=== PATIENT | female | born 1950 | race Asian ===

== ENCOUNTER 2017-02-04 05:13 | Day surgery (SDC) | payer OTHER ==
[2017-01-25 09:52] VITALS: BMI 31.1
[2017-02-04] MEDS ORDERED: ROCURONIUM BROMIDE 50 MG/5 ML VIAL ONE (09:42)
[2017-02-04] MEDS ORDERED: MIDAZOLAM HCL 2 MG/2 ML SINGLE DOSE VIAL ONE (09:42)
[2017-02-04] MEDS ORDERED: PROPOFOL 20 ML ONE (09:42)
[2017-02-04] MEDS ORDERED: LIDOCAINE HCL 2% 100 MG/5 ML DISP.SYRIN ONE (09:43)
[2017-02-04] MEDS ORDERED: LIDOCAINE HCL 2% (20ML MULTI-DOSE VIAL) NR ONE (09:43)
[2017-02-04] MEDS ORDERED: ceFAZolin SODIUM 1 GM VIAL IVPB ONE (10:24)
[2017-02-04] MEDS ORDERED: DEXAMETHASONE SOD PHOSPHATE 4 MG/1 ML VIAL ONE (10:26)
[2017-02-04] MEDS ORDERED: ceFAZolin SODIUM 1 GM VIAL ONE (10:26)
[2017-02-04] MEDS ORDERED: KETOROLAC TROMETHAMINE 30 MG/1 ML VIAL ONE (11:14)
[2017-02-04] MEDS ORDERED: NEOSTIGMINE METHYLSULFATE 0.5 MG/ML - 10 ML MDV ONE (11:17)
[2017-02-04] MEDS ORDERED: GLYCOPYRROLATE 0.2 MG/1 ML VIAL ONE (11:17)
[2017-02-04] MEDS ORDERED: PROMETHAZINE HCL 25 MG/1 ML VIAL IVPUSH PRN (11:51)
[2017-02-04] MEDS ORDERED: ONDANSETRON 4 MG/2 ML VIAL IVPUSH PRN (11:51)
[2017-02-04] MEDS ORDERED: LACTATED RINGERS SOLUTION 1,000 ML IV SCH (12:00)
--- NOTE | 2017-02-04 12:15 | OP ---
Operative Note - Note: Operative Date: 02/04/17 Pre-Operative Diagnosis: left ovarian cyst, right tubular echo filled strucature suggestive of pyosalpinx Operation: laparoscopy with bilateral salpingectomy, left ovarian cystectomy, suction hysteroscopy Implants: endometrial cancer Surgeon: Blanca Sneed Mover: Saba Tran Anesthesiologist/MANUGRAPHER: Virgil Garay Anesthesia: General Specimens Removed: bilateral salpingx, left cyst, endometrial tissue Estimated Blood Loss (mls): 20 Drains, Volume Out (mls): 400 (loo) Fluid Volume Replaced (mls): 700 Operative Report Dictated: Yes
--- NOTE | 2017-02-04 13:27 | SURG ---
Surgery Rebar Bender Note Rebar Bender: Saba Tran PA-C Date of Service: 02/04/17 Diagnosis: left ovarian cyst, right tubular echo filled strucature suggestive of pyosalpinx Procedure: Operation: laparoscopy with bilateral salpingectomy, left ovarian cystectomy, suction hysteroscopy I was present for the entirety of the operative procedure. For further detail, please refer to operative report. Visit type - Case Type Case Type: Scheduled Admission - Emergency Emergency Visit: No - New patient This patient is new to me today: Yes Date on this admission: 02/04/17 - Critical Care Critical Care patient: No
[2017-02-04 14:53] VITALS: TEMP 97
--- NOTE | 2017-02-04 15:31 | HP ---
History & Physical Update - History History: No Change - Physical Physical: No Change - Assessment Assessment: No Change - Plan Plan: No Change
[2017-02-04] MEDS ORDERED: MAG HYDROX/AL HYDROX/SIMETH 30 ML UNIT-DOSE CUP PO ONE (15:44)
[2017-02-04 18:35] VITALS: BP 131/75; PULSE 86
--- NOTE | 2017-02-05 11:08 | EKG ---
Test Reason : Blood Pressure : / mmHG Vent. Rate : 082 BPM Atrial Rate : 082 BPM P-R Int : 180 ms QRS Dur : 084 ms QT Int : 388 ms P-R-T Axes : 043 -04 058 degrees QTc Int : 453 ms NORMAL SINUS RHYTHM NORMAL ECG WHEN COMPARED WITH ECG OF 25-JAN-2017 10:20, NO SIGNIFICANT CHANGE WAS FOUND Confirmed by TATYANA ARAGON MD ([id number]) on 02/05/2017 11:08:28 AM Referred By: Confirmed By:TATYANA ARAGON MD
--- NOTE | 2017-02-07 09:25 | PATH ---
Surgical Pathology Report Patient Name: FADI MOONEY [facility]. Rec. #: [id number] /Age/Gender: 1950 (Age: 66) / F Account: [id number] Location: AMBULATORY SURG Taken: 02/04/2017 Received: 02/04/2017 Reported: 02/07/2017 Physicians: Nash Alonzo Specimen(s) Received A: LEFT FALLOPIAN TUBE B: RIGHT FALLOPIAN TUBE C: CYST WALL, LEFT D: ENDOMETRIAL TISSUE Clinical History Left ovarian cyst, fibroid Endometrial cancer, pyosalpinx, left ovarian cyst Final Diagnosis A. FALLOPIAN TUBE, LEFT, SALPINGECTOMY: BENIGN FALLOPIAN TUBE WITH SMALL PARATUBAL CYSTS. NOT INVOLVED BY CARCINOMA. B. "PYOSALPINX" (FALLOPIAN TUBE), RIGHT, SALPINGECTOMY: HIGH GRADE POORLY DIFFERENTIATED CARCINOMA, CONSISTENT WITH SEROUS CARCINOMA, WITH EXTENSIVE NECROSIS (SEE COMMENT). TUMOR SIZE: ~9.0 CM SMALL PARATUBAL CYST WITH FOCAL INVOLVEMENT BY CARCINOMA; NO DEFINITIVE SEROSAL INVOLVEMENT IDENTIFIED. FOCAL AREA SUGGESTIVE OF IN-SITU COMPONENT IDENTIFIED. LYMPHOVASCULAR INVASION: IDENTIFIED. PATHOLOGIC STAGING: SEE COMMENT. C. OVARY, LEFT, CYST, CYSTECTOMY: BENIGN CYST, MOST CONSISTENT WITH SEROUS CYST. NO CARCINOMA IDENTIFIED. D. "ENDOMETRIAL CANCER TISSUE" CURETTAGE: FRAGMENTS OF HIGH GRADE POORLY DIFFERENTIATED CARCINOMA, CONSISTENT WITH SEROUS CARCINOMA, MORPHOLOGICALLY SIMILAR TO PART B (SEE COMMENT). Comment: The sections show a markedly distended right fallopian tube with near complete involvement by high grade carcinoma. The tumor partially involved a small surface paratubal cyst; however, no definitive penetration of the serosa is seen. Focal area suggestive of an in situ component within the fallopian tube is seen. Tissue from endometrial curettage shows morphologically identical high-grade carcinoma. Immunohistochemical stains performed and interpreted at [place], [place] ([id number]) on block D5 and interpreted at [facility] show the following: The tumor cells are strongly positive for CK7, p16, p53, and WT1 immunostains, positive for PAX8, ER and TX immunostains; the tumor cells are negative for CK20 and CD10 immunostains. The morphologic findings and the immunoprofile are most consistent with serous carcinoma. The unilateral near complete involvement of the right fallopian tube with a focus suggestive of an in situ component favors Fallopian tube origin of this neoplasm. The reviewed material, demonstrating unilateral tubal and endometrial involvement by carcinoma, suggests at least pT2a (FIGO IIA) pathologic staging; however, complete pathologic staging is deferred till the staging procedure is performed (per Dr. Red). The case was initially discussed with Dr. Sneed on 02/05/[address] Red on 02/06/17. Comments Fallopian Tube Carcinoma: Surgical Pathology Cancer Case Summary (Checklist) Based on AJCC/UICC TNM, 7th edition Tumor Site _x_ Right fallopian tube Relationship to ovary: _x_ Not fused Status of fimbriated end: _x_ Closed Tumor Location _x_ Ampulla _x_ Infundibular portion _x_ Isthmus Specimen Integrity _x_ Intact Tumor Size Greatest dimension: 9.0 cm Histologic Type: serous carcinoma Histologic Grade _x_ G3: Poorly differentiated Lymph-Vascular Invasion _x_ Identified Lymph Node Sampling _x_ Not performed Pathologic Staging (pTNM [FIGO]): See comment above. Electronically Signed Kishore Castillo M.D. Gross Description A. Received in formalin labeled "left fallopian tube" is a 3.5 cm in length fimbriated fallopian tube. The outer surface is suarez-pink and smooth. Sectioning reveals an unremarkable pinpoint lumen. The specimen is submitted entirely in 2 cassettes as follows: 1-fimbria; 2-cross sections of fallopian tube. B. Received in formalin labeled "right pyosalpinx" is a 9 cm in length fimbriated, dilated, coiled portion of fallopian tube. The outer surface is suarez-pink with focal nodularity. Sectioning reveals a dilated lumen containing solid suarez, focally hemorrhagic material. No serosal disruption is grossly identified. Packer Insulation sections are submitted in 12 cassettes as follows: 1-fimbria; 2-5-cross sections of fallopian tube, 5-12 additional cross sections of fallopian tube. C. Received in formalin, labeled "cyst wall left" is a 2.5 x 0.9 x 0.2 cm suarez, irregular portion of soft tissue, possibly consistent with a portion of cyst wall. The specimen is submitted in toto in one cassette. D. Received in formalin labeled "endometrial cancer tissue" is a 6.0 x 4.5 x 0.3 cm aggregate of suarez-pink soft tissue fragments. The formalin is filtered and the specimen is entirely submitted in 6 cassettes. 02/04/201702/04/2017
--- NOTE | 2017-02-16 12:25 | OP ---
DATE OF OPERATION: 02/04/2017 PREOPERATIVE DIAGNOSIS: Left ovarian cyst and right hydrosalpinx with possibly pyelosalpinx or tubal cancer. POSTOPERATIVE DIAGNOSIS: Rule out tubal cancer and also endometrial cancer. OPERATION: Laparoscopic bilateral salpingectomy, left ovarian cystectomy, suction dilatation and curettage, and hysteroscopy. SURGEON: Landon Rodriguez MD QUALITY CONTROL HEAD: LOS Pina ANESTHESIA: General. ANESTHESIOLOGIST: Virgil Garay MD EBL: 20CC FINDINGS: A large hydrosalpinx (possibly pyelosalpinx) noted on the right tube , a cyst on the left ovary, and endometrial carcinoma noted by hysteroscopy. DESCRIPTION OF PROCEDURE: The patient was taken to the operating room, placed in the dorsal lithotomy position, prepped and draped in the usual sterile fashion. A time-out was performed in accordance with hospital regulation. A Kiser catheter had been inserted into the bladder. A 5-mm umbilical incision was made. An 11-mm incision was made on the left and a 5 mm incision was made on the right. Veress needle was inserted and CO2 was insufflated into the abdomen. Approximately 3 to 4 liters of CO2 was insufflated. The Veress needle was then removed, and a 5-mm trocar was then inserted under direct visualization without injury to the underlying viscera. The laparoscope with camera attached - visualization revealed a normal uterus with what appeared to be either right hydrosalpinx with either a pyelosalpinx or possibly tubal cancer seen on the right tube. On the left noted to have an ovarian cyst, approximately 3 cm. LigaSure was then inserted and coagulation and cutting of the left tube and right tube were done. An Endo bag was inserted and tubes were removed. Attention was then drawn to the left ovary, where a cystectomy was performed. The cyst wall was then peeled away from the ovary and also submitted. Hemostasis was achieved using coagulation. Tubes were removed, as well as the left ovarian cyst. Hemostasis was achieved. CO2 was removed from the abdomen. The incisions was then closed using 4-0 Biosyn suture. Attention was then drawn to the vagina, speculum was placed then hysteroscope was inserted. A large amount of endometrial cancer was seen. Suction dilatation and curettage was then performed. Cautery was then used to remove some of the tissue. After suction D &C had been performed, all instruments were then removed. The patient tolerated the procedure well. She was taken to the recovery room in stable condition. LANDON RODRIGUEZ M.D. [id number] MTDD
== END 2017-02-04 18:44 | disposition home or self-care (01) ==
LOC: JASUSAT 05:13 → MERGE 17:34 → JASUSAT 18:44
PROVIDERS: ATTEND Obstetrics & Gynecology
PROC: 0UB74ZZ Excision of Bilateral Fallopian Tubes, Percutaneous Endoscopic Approach (ICD-10-PCS; principal; 2017-02-04 09:30)
PROC: 0UB14ZZ Excision of Left Ovary, Percutaneous Endoscopic Approach (ICD-10-PCS; 2017-02-04 09:30)
PROC: 0UDB8ZX Extraction of Endometrium, Via Natural or Artificial Opening Endoscopic, Diagnostic (ICD-10-PCS; 2017-02-04 09:30)
DX: C57.01 Malignant neoplasm of right fallopian tube (principal); N70.91 Salpingitis, unspecified; N83.8 Other noninflammatory disorders of ovary, fallopian tube and broad ligament
CPT/HCPCS: 84703; 86850; 86900; 86901; 88305-TC; 93005; 93010; 94760

== ENCOUNTER 2017-02-26 05:12 | Day surgery (SDC) | payer OTHER ==
[2017-02-21 10:26] VITALS: BMI 31.1
[2017-02-26] MEDS ORDERED: PROPOFOL 20 ML ONE ×2 (07:58)
[2017-02-26] MEDS ORDERED: MIDAZOLAM HCL 2 MG/2 ML SINGLE DOSE VIAL ONE (07:58)
[2017-02-26] MEDS ORDERED: ROCURONIUM BROMIDE 50 MG/5 ML VIAL ONE ×2 (07:58→09:20)
[2017-02-26] MEDS ORDERED: SUCCINYLCHOLINE CHLORIDE 200 MG/10 ML VIAL ONE (07:58)
--- NOTE | 2017-02-26 08:14 | HP ---
History & Physical Update - History History: No Change - Physical Physical: No Change - Assessment Assessment: No Change - Plan Plan: No Change
[2017-02-26] MEDS ORDERED: IBUPROFEN 800 MG/8 ML IJ IVPB PRN (08:16)
[2017-02-26] MEDS ORDERED: DEXAMETHASONE SOD PHOSPHATE 4 MG/1 ML VIAL ONE (08:17)
[2017-02-26] MEDS ORDERED: ceFAZolin SODIUM 1 GM VIAL ONE (08:18)
[2017-02-26] MEDS ORDERED: ceFAZolin SODIUM 1 GM VIAL IVPB ONE (08:20)
[2017-02-26] MEDS ORDERED: DESFLURANE GAS 240 ML BOTTLE IH ONE (08:25)
[2017-02-26] MEDS ORDERED: BUPIVACAINE HCL/PF 0.5% (5MG/ML) 10 ML VIAL ONE (08:26)
[2017-02-26] MEDS ORDERED: LACTATED RINGERS SOLUTION 1,000 ML IV SCH ×2 (08:30→10:45)
[2017-02-26] MEDS ORDERED: HYDROmorphone HCL/PF 1 MG/ML VIAL (FOR PYXIS CHARGING ONLY) ONE (08:34)
[2017-02-26] MEDS ORDERED: BUPIVACAINE HCL/PF 0.5% (5MG/ML) 10 ML VIAL IJ ONE ×2 (09:06→10:30)
[2017-02-26] MEDS ORDERED: NEOSTIGMINE METHYLSULFATE 0.5 MG/ML - 10 ML MDV ONE (10:14)
[2017-02-26] MEDS ORDERED: KETOROLAC TROMETHAMINE 30 MG/1 ML VIAL ONE (10:14)
[2017-02-26] MEDS ORDERED: GLYCOPYRROLATE 0.2 MG/1 ML VIAL ONE (10:14)
--- NOTE | 2017-02-26 10:40 | OP ---
Operative Note - Note: Operative Date: 02/26/17 Pre-Operative Diagnosis: right fallopian tube cancer, endometrial cancer Operation: robotic assisted laparoscopic hysterectomy, bilateral oophorectomy, omentectomy, right pelvic node biopsy, tumor debulking optimal Findings: uterus 6cm with normal ovaries, a tumor nodule on the sigmoid epiploica. there were no residual tumors. Post-Operative Diagnosis: Same as Pre-op Surgeon: Ryan Red (intraop ) Access Analyst: Blanca Sneed Anesthesia: General Estimated Blood Loss (mls): 50 Operative Report Dictated: Yes
--- NOTE | 2017-02-26 10:50 | DS ---
Physical Examination Vital Signs: Vital Signs Temperature 97.9 F 02/26/17 06:35 Pulse Rate 84 02/26/17 06:35 Respiratory Rate 20 02/26/17 06:35 Blood Pressure 149/70 02/26/17 06:35 O2 Sat by Pulse Oximetry (%) 99 02/26/17 06:34 Constitutional: Yes: Well Nourished Eyes: Yes: WNL HENT: Yes: WNL Neck: Yes: WNL Cardiovascular: Yes: WNL Respiratory: Yes: WNL Gastrointestinal: Yes: WNL Edema: No Peripheral Pulses WNL: Yes Wound/Incision: Yes: Clean/Dry Neurological: Yes: WNL Discharge Summary Reason For Visit: ENDOMETRIAL CANCER surgery Procedures: Principal: robotic assisted laparoscopic hysterectomy, bilateral oophorectomy, omentectomy, right pelvic node biopsy, optimal debulking Condition: Good - Instructions Diet, Activity, Other Instructions: regular diet as tolerated Disposition: HOME - Home Medications Comprehensive Discharge Medication List: Ambulatory Orders Aspirin Coated [Ecotrin -] 81 mg PO DAILY 01/25/17 Rosuvastatin Calcium [Crestor] 10 mg PO HS 01/25/17
[2017-02-26] MEDS: HYDROmorphone HCL CARPU-JECT 1 MG/1 ML DISP.SYRIN IVPUSH PRN ×4 (11:10→11:35)
[2017-02-26] MEDS ORDERED: HYDROmorphone HCL CARPU-JECT 2 MG/1 ML DISP.SYRIN ONE (11:18)
[2017-02-26 11:58] LABS: MCH 29.9 pg (25.7-33.7); MCHC 33.6 g/dl (32.0-36.0); MEAN CELL VOLUME 88.8 fl (80-96); PLATELET COUNT 242 K/MM3 (134-434); WHITE BLOOD COUNT 9.5 K/mm3 (4.0-10.0)
--- NOTE | 2017-02-26 12:11 | OP ---
DATE OF OPERATION: 02/26/2017 This is an intraoperative consultation called by Dr. Blanca Sneed for intraabdominal tumor nodule. PREOPERATIVE DIAGNOSIS: Serous carcinoma of right fallopian tube, serous carcinoma of uterus. POSTOPERATIVE DIAGNOSIS: Serous carcinoma of right fallopian tube, serous carcinoma of uterus. PROCEDURE: Intraoperative consultation, robotic-assisted laparoscopic hysterectomy, bilateral oophorecetomy, right pelvic node biopsy, omentectomy, optimal tumor debulkings. SURGEON: Ryan Red MD PLASTIC BLOCK BOILER RELINER: Blanca Sneed MD ANESTHESIA: General. ESTIMATED BLOOD LOSS: Minimal. OPERATIVE FINDINGS: The patient has a 6-cm uterus with normal-appearing ovaries. There was a tumor nodule on the sigmoid colon at the location of appendix epiploica. There were no other abnormal intraabdominal findings. OPERATIVE PROCEDURE: Under general endotracheal tube anesthesia, skin was prepped and draped in the usual manner for abdominal vaginal procedure. A Kiser catheter was placed, a bivalve speculum placed in the vagina, single-tooth tenaculum applied to the anterior lip of the cervix. The uterus was sounded to 6 cm followed by placement of manipulators. This was then followed by moving to perform abdominal portion of the surgery. An incision was made at the umbilicus, which was followed by placement of Veress needle, and after confirming successful placement, insufflation of CO2 was carried out. An 8-mm 30-degree robotic camera was used to visualize the entire abdominal and pelvic cavity. Additional trocar was placed at the left lower quadrant of the abdomen, left mid abdomen, right mid abdomen, right lateral abdomen with direct visualization. An additional 5-mm trocar was placed at the left upper quadrant of the abdomen. With the patient in Trendelenburg position, the entire abdomen and pelvis as visualized. Pelvic washings were done. Fluid was sent for cytologic evaluations. We then followed by opening posteriorly of the blocked ligament identifying the ureter. IP ligament was cauterized and cut on both sides followed by cauterizing and cutting the mesosalpinx on both sides, followed by cauterizing and cutting the round ligament on both sides. Pubovesical cervical fascia was incised. The bladder was dissected away. Uterine vessels were skeletonized and cauterized and cut on both sides. We then followed by further cauterizing and cutting the cardinal ligaments. Eventually, the vagina was entered, uterus was removed. Subsequently, the nodule from the epiploica was resected using careful dissections. The omentum was removed from below the colon using vessel sealer. At the end, an enlarged right pelvic node was biopsied. The lymph node was grasped, adequately secured lymph node was removed. At the end, we irrigated copiously, made sure there was no injury to bowel, bladder, ureters. The vaginal cuff was closed with 0 V-Loc suture in a running fashion. There was no bleeding. Patient tolerated the procedure well, and we made sure there was no injury to bowel, bladder, ureters. The skin was closed with 4-0 Monocryl. Nash [id number] cc: Blanca Sneed MD
[2017-02-26 12:19] LABS: ANION GAP 7 (8-16); CALCIUM 8.7 mg/dL (8.5-10.1); CO2 29 mmol/L (21-32); COCKROFT - GAULT 100.9715; CREATININE 0.7 mg/dL (0.55-1.02); GLUCOSE,RANDOM 155 mg/dL (74-106)
[2017-02-26 12:20] LABS: TROPONIN I < 0.02 ng/ml (0.00-0.05)
[2017-02-26] MEDS ORDERED: LORAZEPAM CARPU-JECT 2 MG/ML DISP.SYRIN IM ONE (13:45)
--- NOTE | 2017-02-26 14:02 | EKG ---
Test Reason : Blood Pressure : / mmHG Vent. Rate : 059 BPM Atrial Rate : 059 BPM P-R Int : 168 ms QRS Dur : 084 ms QT Int : 430 ms P-R-T Axes : 044 -06 064 degrees QTc Int : 425 ms SINUS BRADYCARDIA POSSIBLE ANTERIOR INFARCT , AGE UNDETERMINED ABNORMAL ECG WHEN COMPARED WITH ECG OF 04-FEB-2017 15:54, NO SIGNIFICANT CHANGE WAS FOUND Confirmed by CRYSTAL ROLLE MD ([id number]) on 02/26/2017 2:02:25 PM Referred By: Miguel HARVEY Confirmed By:CRYSTAL ROLLE MD
[2017-02-26] MEDS: CEFAZOLIN 2 GM/D5W 50 ML IVPB SCH ×2 (15:47→23:12)
[2017-02-26 18:02] LABS: MCH 29.2 pg (25.7-33.7); MCHC 33.1 g/dl (32.0-36.0); MEAN CELL VOLUME 88.2 fl (80-96); MEAN PLT VOLUME 6.9 fl (7.5-11.1); PLATELET COUNT 252 K/MM3 (134-434); RDW 13.8 % (11.6-15.6); WHITE BLOOD COUNT 8.5 K/mm3 (4.0-10.0)
[2017-02-26 18:34] LABS: COCKROFT - GAULT 100.9715; CREATININE 0.7 mg/dL (0.55-1.02)
[2017-02-26 18:39] LABS: TROPONIN I < 0.02 ng/ml (0.00-0.05)
[2017-02-26] MEDS ORDERED: SIMETHICONE 80 MG TAB.CHEW (FP) PO PRN (20:50)
--- NOTE | 2017-02-26 23:25 | PN ---
Progress Note (short form) - Note Progress Note: Pt was seen at bedside due to upper abd pain possible gas pain VSS CBC, BMP 02/26/17 17:56 02/26/17 17:56 Abd soft mild tendernss at incisions incision intact no drainage Ext no edema ass possible pain due to CO2 possible gastritis aurelia give mylicon will reevaluate & DC in am if stable
[2017-02-27 08:56] LABS: MEAN CELL VOLUME 88.1 fl (80-96); MEAN PLT VOLUME 7.1 fl (7.5-11.1); PLATELET COUNT 238 K/MM3 (134-434); WHITE BLOOD COUNT 8.8 K/mm3 (4.0-10.0)
[2017-02-27] MEDS ORDERED: ACETAMINOPHEN 325 MG TABLET (FP) PO PRN (09:54)
[2017-02-27] MEDS ORDERED: ENOXAPARIN NA (PORCINE) 40 MG/0.4 ML DISP.SYRIN SQ SCH (10:00)
--- NOTE | 2017-02-27 10:48 | PN ---
Progress Note (SOAP) - Subjective History of Present Illness: Pt doing well Pt has gas pain given Mylicon - Current Medications Current Medications: Active Medications Acetaminophen (Tylenol -) 650 mg PO Q4H PRN PRN Reason: PAIN Last Admin: 02/27/17 10:16 Dose: 650 mg Enoxaparin Sodium (Lovenox -) 40 mg SQ DAILY ASTRID Last Admin: 02/27/17 10:16 Dose: Not Given Hydromorphone HCl (Dilaudid -) 4 mg PO Q4H PRN PRN Reason: PAIN Hydromorphone HCl (Dilaudid Injection -) 0.5 mg IVPUSH [id number] PRN PRN Reason: PAIN Stop: 03/01/17 10:43 Last Admin: 02/26/17 11:35 Dose: 0.5 mg Lactated Ringer's (Lactated Ringers Solution) 1,000 mls @ 75 mls/hr IV ASDIR ASTRID Ibuprofen (Caldolor Injection -) 800 mg IVPB Q6H PRN PRN Reason: FEVER Last Admin: 02/26/17 17:49 Dose: 800 mg Simethicone (Mylicon -) 80 mg PO Q4H PRN Last Admin: 02/26/17 21:18 Dose: 80 mg - Objective Vital Signs: Vital Signs Temperature 97.8 F 02/27/17 08:15 Pulse Rate 67 02/27/17 08:15 Respiratory Rate 18 02/27/17 08:15 Blood Pressure 126/61 02/27/17 08:15 O2 Sat by Pulse Oximetry (%) 98 02/26/17 13:30 Labs Lab Results: CBC, BMP 02/27/17 08:00 02/26/17 17:56 Assessment/Plan POD 1 robotic Total hysterectomy stable Plan dc homewhen passing flatus
--- NOTE | 2017-02-27 13:54 | PN ---
Progress Note, Physician Chief Complaint: s/p robotic BSO tumor debulking History of Present Illness: under general anesthesia post op day one - Current Medication List Current Medications: Active Medications Acetaminophen (Tylenol -) 650 mg PO Q4H PRN PRN Reason: PAIN Last Admin: 02/27/17 10:16 Dose: 650 mg Enoxaparin Sodium (Lovenox -) 40 mg SQ DAILY ASTRID Last Admin: 02/27/17 10:16 Dose: Not Given Hydromorphone HCl (Dilaudid -) 4 mg PO Q4H PRN PRN Reason: PAIN Hydromorphone HCl (Dilaudid Injection -) 0.5 mg IVPUSH [id number] PRN PRN Reason: PAIN Stop: 03/01/17 10:43 Last Admin: 02/26/17 11:35 Dose: 0.5 mg Lactated Ringer's (Lactated Ringers Solution) 1,000 mls @ 75 mls/hr IV ASDIR ASTRID Ibuprofen (Caldolor Injection -) 800 mg IVPB Q6H PRN PRN Reason: FEVER Last Admin: 02/26/17 17:49 Dose: 800 mg Simethicone (Mylicon -) 80 mg PO Q4H PRN Last Admin: 02/26/17 21:18 Dose: 80 mg - Objective Vital Signs: Vital Signs Temperature 97.8 F 02/27/17 08:15 Pulse Rate 67 02/27/17 08:15 Respiratory Rate 18 02/27/17 08:15 Blood Pressure 126/61 02/27/17 08:15 O2 Sat by Pulse Oximetry (%) 98 02/26/17 13:30 Constitutional: Yes: Well Nourished Cardiovascular: Yes: WNL Respiratory: Yes: WNL Gastrointestinal: Yes: WNL Labs: CBC, BMP 02/27/17 08:00 02/26/17 17:56 Assessment/Plan Patient is ambulating, pain under control, no nausea or vomiting, tolerating PO , no adverse effects of anesthetic. dept of anesthesia will sign off care at this time
[2017-02-27 14:42] VITALS: BP 136/77; PULSE 89; TEMP 98.1
--- NOTE | 2017-03-01 15:34 | PATH ---
Surgical Pathology Report Patient Name: FADI MOONEY [facility]. Rec. #: [id number] /Age/Gender: 1950 (Age: 67) / F Account: [id number] Location: AMBULATORY SURG Taken: 02/26/2017 Received: 02/26/2017 Reported: 03/01/2017 Physicians: Ryan Sneed M.D. Specimen(s) Received A: UTERUS, CERVIX AND BILATERAL OVARIES B: OMENTUM C: RIGHT PELVIC NODE D: PELVIC MASS Clinical History Fallopian tube cancer/endometrial cancer Final Diagnosis A. 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 SURFACE ENDOMETRUIM INVOLVEMEN: PRESENT; MYOMETRIAL INVOLVEMENT (~50%): PRESENT, FOCAL INVOLVEMENT OF ADENOMYOSIS ALSO PRESENT. LYMPHOVASCULAR INVASION: SUSPICIOUS. UNINVOLED ENDOMETRIUM: SMALL ENDOMETRIAL POLYP, BACKGROUND ATROPHIC ENDOMETRIUM. UNINVOLED MYOMETRIUM: ADENOMYOSIS AND LEIOMYOMATA. UTERINE SEROSA: NOT INVOLVED BY CARCINOMA. CERVIX: NOT INVOLVED BY CARCINOMA. PARAMETRIA: NOT INVOLVED BY CARCINOMA. LEFT OVARY: NOT INVOLVED BY CARCINOMA. RIGHT OVARY: NOT INVOLVED BY CARCINOMA. PATHOLOGIC STAGING: SEE COMMENT. B. OMENTUM, OMENTECTOMY: BENIGN FATTY TISSUE; NOT INVOLVED BY CARCINOMA. C. RIGHT PELVIC NODE, LYMPHADENECTOMY: HIGH GRADE ADENOCARCINOMA, MORPHOLOGICALLY SIMILAR TO PART A, INVOLVING NODULAR SOFT TISSUE, COMPATIBLE WITH COMPLETE LYMPH NODE REPLACEMENT BY ADENOCARCINOMA (09/30). SEPARATE FRAGMENT OF FIBROFATTY WITH A SCANT FRAGMENT OF UNINVOLVED LYMPHOID TISSUE. D. PELVIC MASS, BIOPSY: HIGH GRADE ADENOCARCINOMA, MORPHOLOGICALLY SIMILAR TO PART A. Comment: Prior specimen ([id number]) demonstrated right fallopian tube with extensive involvement by high grade adenocarcinoma, consistent with serous carcinoma, including a focal area likely representing an in-situ carcinoma, and uterine curettage specimen with high grade adenocarcinoma morphologically identical to tubal carcinoma. The current specimen shows surface and myometrial uterine involvement by high grade adenocarcinoma, consistent with serous carcinoma with morphology identical to the prior specimen. Involvement of right pelvic node and a "pelvic mass" involved by adenocarcinoma are also seen in this specimen. Immunohistochemical stains performed at the [place], [place] ([id number]) on block A13 and interpreted at [facility] show the tumor cells being positive for p16, p53, WT1, ER and MD immunostains, which is compatible with serous carcinoma. Overall, given the size of the right fallopian tube tumor (9.0 cm), tubal primary is favored, although synchronous tubal and endometrial carcinoma cannot be ruled out. The occurrence of synchronous serous carcinoma of the endometrium and Fallopian tube is well documented in the literature, although the origin of serous carcinoma in these cases remains debatable. When Fallopian tube tumors are >2 cm, and an in-situ component is seen, Fallopian tube origin is favored Assuming the tubal origin of the tumor, pathologic staging is pT2b pN1 [FIGO IIIC] Also refer to [id number] for the pelvic washing cytology results. Reference: Jackelyn Olvera et al. Primary sources of pelvic serous cancer in patients with endometrial epithelial carcinoma. Modern pathology (2015) 28, 118-127. Note: The case was discussed with Dr. Red on 03/01/17. Comments Fallopian Tube Carcinoma: Surgical Pathology Cancer Case Summary (Checklist) Based on AJCC/UICC TNM, 7th edition Tumor Site _x_ Right fallopian tube Relationship to ovary: _x_ Not fused Status of fimbriated end: _x_ Closed _x_ Uterus Tumor Location (in the fallopian tube) _x_ Ampulla _x_ Infundibular portion _x_ Isthmus Specimen Integrity Specify side: _x_ Intact Tumor Size Greatest dimension: 9.0 cm Histologic Type: serous carcinoma Histologic Grade _x_ G3: Poorly differentiated Lymph-Vascular Invasion _x_ Present (also refer to the prior specimen [id number]) Lymph Node Sampling _x_ Pelvic nodes, NOS Number examined: 1 Number positive: 1 Pathologic Staging (pTNM [FIGO]): see comment above. Electronically Signed Kishore Castillo M.D. Gross Description A. Received in formalin labeled "uterus, cervix, bilateral ovaries" is a 63 g hysterectomy specimen including a uterus, attached cervix, and attached bilateral ovaries. No definite fallopian tubes are identified. The specimen measures 8 cm from superior to inferior, 4.4 cm from left to right and 3.0 cm from anterior to posterior. The serosa is pink-suarez with a focal subserosal nodule. The cervix measures 2.7 cm in length and averages 2.5 cm in diameter. The ectocervix is pink-suarez, smooth and glistening. The endometrial cavity measures 3.4 cm in length and 2.3 cm from cornu to cornu. The endometrium displays a 0.4 x 0.3 x 0.1 cm pink-suarez, polypoid lesion on the mid-lower posterior surface. Additionally, there is a 0.7 cm in greatest dimension submucosal nodule near the right cornua of the posterior aspect. The remaining myometrium is suarez red and averages 0.1 cm in thickness. The myometrium displays a 1.5 cm in greatest dimension intramural nodule. The cut surface of the subserosal, submucosal and intramural nodules is suarez, firm to rubbery and displays whorled architecture. No areas of hemorrhage or necrosis are identified. The remaining myometrium is suarez-pink and averages 1.4 cm in thickness. The left ovary measures 1.7 x 1.4 x 0.8 cm. The outer surface is suarez-yellow, convoluted and smooth. Sectioning reveals unremarkable ovarian parenchyma. The right ovary measures 2.5 x 1.7 x 1.0 cm. The outer surface is suarez-yellow and smooth. Sectioning reveals unremarkable ovarian parenchyma. Slot Shift Supervisor sections are submitted in 27 cassettes as follows: 1-anterior cervix; 2-posterior cervix; 3-anterior lower uterine segment; C 4-posterior lower uterine segment; 5-left parametrium; 6-right parametrium; 7-11-entire anterior endomyometrium sequentially submitted from superior to inferior; [id number] posterior endomyometrium sequentially submitted from superior to inferior (submucosal nodule in cassettes 12-13, polyp in cassettes 17-18); 20-subserosal nodule; 21-intramural nodule; 22-24-left ovary; 25-27-right ovary. B. Received in formalin labeled "omentum" is a 25.0 x 12.0 x 1.7 cm aggregate of yellow, lobulated adipose tissue, consistent with omentum. Sectioning reveals unremarkable adipose tissue. No masses are identified. Slot Shift Supervisor sections are submitted in 5 cassettes. C. Received in formalin labeled "right pelvic node" is a 0.7 x 0.5 x 0.4 cm suarez, irregular lymph node. Separately received within the same container is a 2.5 x 2.4 x 0.3 cm aggregate of yellow, lobulated adipose tissue. The lymph node is bisected and the specimen is entirely submitted in 2 cassettes as follows: 1-one whole bisected lymph node; 2-separate fat. D. Received in formalin labeled "pelvic mass" is a 0.2 x 0.2 x 0.1 cm aggregate of suarez soft tissue fragments. No mass is identified. The formalin is filtered and the specimen is entirely submitted in one cassette. 02/26/201702/26/2017
--- NOTE | 2017-03-01 15:34 | PATH ---
Cytology Non-Gynecological Report Patient Name: FADI MOONEY [facility]. Rec. #: [id number] /Age/Gender: 1950 (Age: 67) / F Account: [id number] Location: AMBULATORY SURG Taken: 02/26/2017 Received: 02/26/2017 Reported: 03/01/2017 Physicians: Blanca Sneed M.D. Specimen(s) Received PELVIC WASHINGS Clinical History Fallopian tube/endometrial carcinoma Final Diagnosis PELVIC WASHINGS: SATISFACTORY FOR EVALUATION. SCATTERED CLUSTERS OF ATYPICAL CELLS PRESENT, SUSPICIOUS FOR INVOLVEMENT BY ADENOCARCINOMA (SEE COMMENT). Comment: Refer to [id number] and [id number] for the surgical pathology results. Electronically Signed Kishore Castillo M.D. Gross Description Received is 30 cc of bloody fluid fresh. Three cytofunnel slides are made.
== END 2017-02-27 15:45 | disposition home or self-care (01) ==
LOC: JASUSAT 05:12 → J3W 14:16 → JASUSAT 02-27 15:45
PROVIDERS: ATTEND Obstetrics & Gynecology
PROC: 0UT24ZZ Resection of Bilateral Ovaries, Percutaneous Endoscopic Approach (ICD-10-PCS; 2017-02-26)
PROC: 8E0W4CZ Robotic Assisted Procedure of Trunk Region, Percutaneous Endoscopic Approach (ICD-10-PCS; 2017-02-26)
PROC: 0WBN4ZX Excision of Female Perineum, Percutaneous Endoscopic Approach, Diagnostic (ICD-10-PCS; 2017-02-26)
PROC: 0DBS4ZZ (ICD-10-PCS; 2017-02-26)
PROC: 0DBT4ZZ (ICD-10-PCS; 2017-02-26)
PROC: 0WBN4ZZ Excision of Female Perineum, Percutaneous Endoscopic Approach (ICD-10-PCS; 2017-02-26)
PROC: 0UT94ZZ Resection of Uterus, Percutaneous Endoscopic Approach (ICD-10-PCS; principal; 2017-02-26 08:00)
DX: C57.01 Malignant neoplasm of right fallopian tube (principal); C55 Malignant neoplasm of uterus, part unspecified; C79.9 Secondary malignant neoplasm of unspecified site
CPT/HCPCS: 49321; 58542; S2900; 36415; 80048; 82550; 84484; 85027; 88108; 88305-TC; 88309-TC; 93005; 93010; 94760

== ENCOUNTER 2017-03-25 07:18 | Day surgery (SDC) | payer OTHER ==
[2017-03-25 08:56] LABS: EOSINOPHIL 0.2 % (0-4.5); MCH 29.7 pg (25.7-33.7); MCHC 33.9 g/dl (32.0-36.0); MEAN CELL VOLUME 87.5 fl (80-96); MEAN PLT VOLUME 6.8 fl (7.5-11.1); NEUTROPHILS 77.6 % (42.8-82.8); PLATELET COUNT 312 K/MM3 (134-434); RDW 13.7 % (11.6-15.6)
[2017-03-25 09:25] LABS: ALBUMIN 3.8 g/dl (3.4-5.0); ANION GAP 13 (8-16); BILIRUBIN,DIRECT 0.1 mg/dL (0.0-0.2); BILIRUBIN,TOTAL 0.6 mg/dL (0.2-1.0); CALCIUM 9.3 mg/dL (8.5-10.1); CO2 24 mmol/L (21-32); CREATININE 0.9 mg/dL (0.55-1.02); GLUCOSE,RANDOM 278 mg/dL (74-106); MAGNESIUM 2.1 mg/dL (1.8-2.4); SGOT/AST 32 U/L (15-37); SGPT/ALT 33 U/L (12-78)
[2017-03-25 09:26] LABS: ALK PHOS 94 U/L (45-117); TOT PROT 7.9 g/dl (6.4-8.2)
[2017-03-25] MEDS ORDERED: PALONOSETRON HCL 0.25 MG in SODIUM CHLORIDE 50 ML IVPB ONE (10:00)
[2017-03-25] MEDS ORDERED: DEXAMETHASONE INJECTION 20 MG in SODIUM CHLORIDE 50 ML IVPB ONE (10:00)
[2017-03-25] MEDS ORDERED: RANITIDINE IVPB ONE (10:00)
[2017-03-25] MEDS ORDERED: SODIUM CHLORIDE IVPB ONE ×3 (10:00→13:30)
[2017-03-25] MEDS ORDERED: DIPHENHYDRAMINE IVPB ONE (10:00)
[2017-03-25] MEDS ORDERED: SODIUM CHLORIDE 250 ML IV ONE (10:00)
[2017-03-25] MEDS ORDERED: PACLITAXEL IVPB ONE (10:30)
[2017-03-25] MEDS ORDERED: PORTA CATH FLUSH 10 ML IVPUSH ONE (10:54)
[2017-03-25] MEDS ORDERED: amLODIPine BESYLATE 5 MG TABLET (FP) PO ONE (12:00)
[2017-03-25] MEDS ORDERED: CARBOPLATIN IVPB ONE (13:30)
[2017-03-25 17:41] VITALS: TEMP 97.6
[2017-03-25] MEDS ORDERED: ACETAMINOPHEN 325 MG TABLET (FP) PO ONE (18:00)
[2017-03-25 18:10] VITALS: BP 148/88; PULSE 104
== END 2017-03-25 18:42 | disposition home or self-care (01) ==
LOC: JONCCHEMO 07:18 → J7W 10:46 → JONCCHEMO 18:42
PROVIDERS: ATTEND Internal Medicine Hematology & Oncology
PROC: 3E04305 Introduction of Other Antineoplastic into Central Vein, Percutaneous Approach (ICD-10-PCS; principal; 2017-03-25)
PROC: 3E043GC Introduction of Other Therapeutic Substance into Central Vein, Percutaneous Approach (ICD-10-PCS; 2017-03-25)
PROC: 3E0437Z Introduction of Electrolytic and Water Balance Substance into Central Vein, Percutaneous Approach (ICD-10-PCS; 2017-03-25)
DX: Z51.11 Encounter for antineoplastic chemotherapy (principal); C57.00 Malignant neoplasm of unspecified fallopian tube; C54.1 Malignant neoplasm of endometrium; E78.00 Pure hypercholesterolemia, unspecified; K21.9 Gastro-esophageal reflux disease without esophagitis; K76.0 Fatty (change of) liver, not elsewhere classified; E53.8 Deficiency of other specified B group vitamins; E05.90 Thyrotoxicosis, unspecified without thyrotoxic crisis or storm
CPT/HCPCS: 96361; 96375; 96413; 96415; 96417; J9045; J9267; 36415; 80053; 80076; 83735; 85025; 86304; J2469

== ENCOUNTER 2017-03-26 07:43 | Day surgery (SDC) | payer OTHER ==
[2017-03-26] MEDS ORDERED: PEGFILGRASTIM 6 MG/0.6 ML DISP.SYRIN SQ ONE (10:00)
[2017-03-26 10:56] VITALS: BP 139/89; PULSE 83; TEMP 98.1
== END 2017-03-26 14:47 | disposition home or self-care (01) ==
LOC: JONCNONCHE 07:43 → J7W 10:46 → JONCNONCHE 14:47
PROVIDERS: ATTEND Internal Medicine Hematology & Oncology
PROC: 3E013GC Introduction of Other Therapeutic Substance into Subcutaneous Tissue, Percutaneous Approach (ICD-10-PCS; principal; 2017-03-26)
DX: C57.00 Malignant neoplasm of unspecified fallopian tube (principal); C54.1 Malignant neoplasm of endometrium; E78.00 Pure hypercholesterolemia, unspecified; K21.9 Gastro-esophageal reflux disease without esophagitis; E53.8 Deficiency of other specified B group vitamins; E05.90 Thyrotoxicosis, unspecified without thyrotoxic crisis or storm
CPT/HCPCS: 96372; J2505

== ENCOUNTER 2017-04-15 07:26 | Day surgery (SDC) | payer OTHER ==
[2017-04-15] MEDS ORDERED: PALONOSETRON HCL 0.25 MG in SODIUM CHLORIDE 50 ML IVPB ONE (08:00)
[2017-04-15] MEDS ORDERED: SODIUM CHLORIDE 250 ML IV ONE (08:00)
[2017-04-15] MEDS ORDERED: RANITIDINE INJECTION 50 MG, DIPHENHYDRAMINE 50 MG in SODIUM CHLORIDE 100 ML IVPB ONE (08:00)
[2017-04-15] MEDS ORDERED: DEXAMETHASONE INJECTION 20 MG in SODIUM CHLORIDE 50 ML IVPB ONE (08:00)
[2017-04-15] MEDS ORDERED: SODIUM CHLORIDE IVPB ONE ×2 (08:30→11:30)
[2017-04-15] MEDS ORDERED: PACLITAXEL IVPB ONE (08:30)
[2017-04-15] MEDS ORDERED: CARBOPLATIN IVPB ONE (11:30)
[2017-04-15 11:31] LABS: BASOPHIL 1.3 % (0-2.0); MCH 30.1 pg (25.7-33.7); MCHC 34.3 g/dl (32.0-36.0); MEAN CELL VOLUME 87.7 fl (80-96); MEAN PLT VOLUME 6.6 fl (7.5-11.1); NEUTROPHILS 88.2 % (42.8-82.8); PLATELET COUNT 386 K/MM3 (134-434); RDW 14.1 % (11.6-15.6); WHITE BLOOD COUNT 10.5 K/mm3 (4.0-10.0)
[2017-04-15 11:58] LABS: ALBUMIN 3.7 g/dl (3.4-5.0); ALK PHOS 88 U/L (45-117); ANION GAP 10 (8-16); BILIRUBIN,DIRECT 0.1 mg/dL (0.0-0.2); BILIRUBIN,TOTAL 0.5 mg/dL (0.2-1.0); CALCIUM 9.2 mg/dL (8.5-10.1); CO2 25 mmol/L (21-32); CREATININE 0.7 mg/dL (0.55-1.02); GLUCOSE,RANDOM 239 mg/dL (74-106); MAGNESIUM 2.1 mg/dL (1.8-2.4); SGOT/AST 25 U/L (15-37); SGPT/ALT 45 U/L (12-78); TOT PROT 7.4 g/dl (6.4-8.2)
[2017-04-15] MEDS ORDERED: amLODIPine BESYLATE 5 MG TABLET (FP) PO PRN (13:49)
[2017-04-15] MEDS ORDERED: ALTEPLASE 2 MG VIAL CVP ONE (15:15)
[2017-04-15 21:20] VITALS: TEMP 98
[2017-04-15] MEDS ORDERED: PORTA CATH FLUSH 10 ML IVPUSH ONE (21:44)
[2017-04-15 22:15] VITALS: BP 133/83; PULSE 100
== END 2017-04-15 22:15 | disposition home or self-care (01) ==
LOC: JONCCHEMO 07:26 → J7W 12:36 → JONCCHEMO 22:15
PROVIDERS: ATTEND Internal Medicine Hematology & Oncology
PROC: 3E04305 Introduction of Other Antineoplastic into Central Vein, Percutaneous Approach (ICD-10-PCS; principal; 2017-04-15)
PROC: 3E043GC Introduction of Other Therapeutic Substance into Central Vein, Percutaneous Approach (ICD-10-PCS; 2017-04-15)
PROC: 3E0437Z Introduction of Electrolytic and Water Balance Substance into Central Vein, Percutaneous Approach (ICD-10-PCS; 2017-04-15)
DX: Z51.11 Encounter for antineoplastic chemotherapy (principal); C57.02 Malignant neoplasm of left fallopian tube; C54.1 Malignant neoplasm of endometrium
CPT/HCPCS: 96367; 96375; 96413; 96415; 96417; J9045; J9267; 36415; 80053; 80076; 83735; 85025; 93970-TC; J2469; J2997

== ENCOUNTER 2017-04-16 07:42 | Day surgery (SDC) | payer OTHER ==
[2017-04-16] MEDS ORDERED: PEGFILGRASTIM 6 MG/0.6 ML DISP.SYRIN SQ ONE (08:00)
[2017-04-16 13:28] VITALS: BP 146/71; PULSE 92; TEMP 98.9
== END 2017-04-16 14:39 | disposition home or self-care (01) ==
LOC: JONCNONCHE 07:42 → J7W 11:30 → JONCNONCHE 14:39
PROVIDERS: ATTEND Internal Medicine Hematology & Oncology
PROC: 3E013GC Introduction of Other Therapeutic Substance into Subcutaneous Tissue, Percutaneous Approach (ICD-10-PCS; principal; 2017-04-16)
DX: C57.02 Malignant neoplasm of left fallopian tube (principal); C54.1 Malignant neoplasm of endometrium
CPT/HCPCS: 96372; J2505

== ENCOUNTER 2017-05-06 07:40 | Day surgery (SDC) | payer OTHER ==
[2017-05-06 09:09] LABS: BASOPHIL 0.4 % (0-2.0); MCHC 33.7 g/dl (32.0-36.0); MEAN CELL VOLUME 89.1 fl (80-96); MEAN PLT VOLUME 6.6 fl (7.5-11.1); PLATELET COUNT 284 K/MM3 (134-434); RDW 16.1 % (11.6-15.6); WHITE BLOOD COUNT 6.7 K/mm3 (4.0-10.0)
[2017-05-06 09:37] LABS: ALBUMIN 3.7 g/dl (3.4-5.0); ALK PHOS 90 U/L (45-117); ANION GAP 9 (8-16); BILIRUBIN,DIRECT 0.1 mg/dL (0.0-0.2); BILIRUBIN,TOTAL 0.5 mg/dL (0.2-1.0); CALCIUM 9.2 mg/dL (8.5-10.1); CO2 24 mmol/L (21-32); CREATININE 0.8 mg/dL (0.55-1.02); GLUCOSE,RANDOM 209 mg/dL (74-106); MAGNESIUM 1.8 mg/dL (1.8-2.4); SGOT/AST 22 U/L (15-37); SGPT/ALT 40 U/L (12-78); TOT PROT 7.5 g/dl (6.4-8.2)
[2017-05-06] MEDS ORDERED: DEXAMETHASONE INJECTION 20 MG in SODIUM CHLORIDE 50 ML IVPB ONE (10:00)
[2017-05-06] MEDS ORDERED: DIPHENHYDRAMINE IVPB ONE (10:00)
[2017-05-06] MEDS ORDERED: PALONOSETRON HCL 0.25 MG in SODIUM CHLORIDE 50 ML IVPB ONE (10:00)
[2017-05-06] MEDS ORDERED: SODIUM CHLORIDE 250 ML IV ONE (10:00)
[2017-05-06] MEDS ORDERED: RANITIDINE IVPB ONE (10:00)
[2017-05-06] MEDS ORDERED: SODIUM CHLORIDE IVPB ONE ×3 (10:00→11:00)
[2017-05-06] MEDS ORDERED: CARBOPLATIN IVPB ONE (10:30)
[2017-05-06] MEDS ORDERED: ALTEPLASE 2 MG VIAL CVP ONE (11:00)
[2017-05-06] MEDS ORDERED: PACLITAXEL IVPB ONE (11:00)
[2017-05-06 19:35] VITALS: BP 171/82; PULSE 92; TEMP 97.2
== END 2017-05-06 19:43 | disposition home or self-care (01) ==
LOC: JONCCHEMO 07:40 → J7W 10:05 → JONCCHEMO 19:43
PROVIDERS: ATTEND Internal Medicine Hematology & Oncology
DX: Z51.11 Encounter for antineoplastic chemotherapy (principal); C57.02 Malignant neoplasm of left fallopian tube; C54.1 Malignant neoplasm of endometrium
CPT/HCPCS: 36415; 80053; 80076; 83735; 85025; 86304; 96361; 96367; 96375; 96411; 96413; 96415; 96417; J2469; J2997

== ENCOUNTER 2017-05-07 07:38 | Day surgery (SDC) | payer OTHER ==
[2017-05-07] MEDS ORDERED: PEGFILGRASTIM 6 MG/0.6 ML DISP.SYRIN SQ ONE (10:00)
== END 2017-05-07 14:49 | disposition home or self-care (01) ==
LOC: JONCNONCHE 07:38 → J7W 14:08 → JONCNONCHE 14:49
PROVIDERS: ATTEND Internal Medicine Hematology & Oncology
PROC: 3E013GC Introduction of Other Therapeutic Substance into Subcutaneous Tissue, Percutaneous Approach (ICD-10-PCS; principal; 2017-05-07)
DX: C57.02 Malignant neoplasm of left fallopian tube (principal); C54.1 Malignant neoplasm of endometrium
CPT/HCPCS: 96372; J2505

== ENCOUNTER 2017-05-27 07:25 | Day surgery (SDC) | payer OTHER ==
[2017-05-27] MEDS ORDERED: RANITIDINE IVPB ONE (10:00)
[2017-05-27] MEDS ORDERED: PALONOSETRON HCL 0.25 MG in SODIUM CHLORIDE 50 ML IVPB ONE (10:00)
[2017-05-27] MEDS ORDERED: SODIUM CHLORIDE 250 ML IV ONE (10:00)
[2017-05-27] MEDS ORDERED: DIPHENHYDRAMINE IVPB ONE (10:00)
[2017-05-27] MEDS ORDERED: DEXAMETHASONE INJECTION 20 MG in SODIUM CHLORIDE 50 ML IVPB ONE (10:00)
[2017-05-27] MEDS ORDERED: SODIUM CHLORIDE IVPB ONE ×3 (10:00→13:30)
[2017-05-27 10:24] LABS: BASOPHIL 0.7 % (0-2.0); MCH 30.6 pg (25.7-33.7); MCHC 33.5 g/dl (32.0-36.0); MEAN CELL VOLUME 91.2 fl (80-96); MEAN PLT VOLUME 6.8 fl (7.5-11.1); NEUTROPHILS 83.5 % (42.8-82.8); PLATELET COUNT 327 K/MM3 (134-434); RDW 18.1 % (11.6-15.6); WHITE BLOOD COUNT 7.4 K/mm3 (4.0-10.0)
[2017-05-27] MEDS ORDERED: PACLITAXEL IVPB ONE (10:30)
[2017-05-27] MEDS ORDERED: CARBOPLATIN IVPB ONE (13:30)
[2017-05-27] MEDS ORDERED: PORTA CATH FLUSH 10 ML IVPUSH ONE (19:23)
[2017-05-27 20:15] VITALS: BP 140/95; PULSE 92; TEMP 98.5
== END 2017-05-27 18:40 | disposition home or self-care (01) ==
LOC: JONCCHEMO 07:25 → J7W 09:24 → JONCCHEMO 18:40
PROVIDERS: ATTEND Internal Medicine Hematology & Oncology
DX: Z51.11 Encounter for antineoplastic chemotherapy (principal); C57.02 Malignant neoplasm of left fallopian tube; C54.1 Malignant neoplasm of endometrium
CPT/HCPCS: 36415; 85025; 96375; 96413; 96415; 96417; J2469

== ENCOUNTER 2017-05-28 07:42 | Day surgery (SDC) | payer OTHER ==
[2017-05-28] MEDS ORDERED: PEGFILGRASTIM 6 MG/0.6 ML DISP.SYRIN SQ ONE (10:00)
[2017-05-28 13:35] VITALS: BP 140/70; PULSE 86; TEMP 97.8
== END 2017-05-28 13:51 | disposition home or self-care (01) ==
LOC: JONCNONCHE 07:42 → J7W 13:30 → JONCNONCHE 13:51
PROVIDERS: ATTEND Internal Medicine Hematology & Oncology
PROC: 3E013GC Introduction of Other Therapeutic Substance into Subcutaneous Tissue, Percutaneous Approach (ICD-10-PCS; principal; 2017-05-28)
DX: C57.02 Malignant neoplasm of left fallopian tube (principal); C54.1 Malignant neoplasm of endometrium
CPT/HCPCS: 96372; J2505

== ENCOUNTER 2017-06-17 07:54 | Day surgery (SDC) | payer OTHER ==
[2017-06-17] MEDS ORDERED: DEXAMETHASONE INJECTION 20 MG in SODIUM CHLORIDE 50 ML IVPB ONE (08:00)
[2017-06-17] MEDS ORDERED: PALONOSETRON HCL 0.25 MG in SODIUM CHLORIDE 50 ML IVPB ONE (08:00)
[2017-06-17] MEDS ORDERED: RANITIDINE INJECTION 50 MG, DIPHENHYDRAMINE 50 MG in SODIUM CHLORIDE 100 ML IVPB ONE (08:00)
[2017-06-17] MEDS ORDERED: SODIUM CHLORIDE 250 ML IV ONE (08:00)
[2017-06-17] MEDS ORDERED: SODIUM CHLORIDE IVPB ONE ×2 (08:30→11:30)
[2017-06-17] MEDS ORDERED: PACLITAXEL IVPB ONE (08:30)
[2017-06-17 09:08] LABS: MCH 31.6 pg (25.7-33.7); MCHC 34.4 g/dl (32.0-36.0); MEAN PLT VOLUME 6.7 fl (7.5-11.1); PLATELET COUNT 242 K/MM3 (134-434); RDW 18.3 % (11.6-15.6); WHITE BLOOD COUNT 7.9 K/mm3 (4.0-10.0)
[2017-06-17 09:42] LABS: ALBUMIN 3.8 g/dl (3.4-5.0); ANION GAP 10 (8-16); BILIRUBIN,DIRECT 0.1 mg/dL (0.0-0.2); BILIRUBIN,TOTAL 0.6 mg/dL (0.2-1.0); CALCIUM 9.8 mg/dL (8.5-10.1); CO2 24 mmol/L (21-32); CREATININE 0.7 mg/dL (0.55-1.02); GLUCOSE,RANDOM 205 mg/dL (74-106); MAGNESIUM 1.7 mg/dL (1.8-2.4); SGOT/AST 26 U/L (15-37); SGPT/ALT 43 U/L (12-78); TOT PROT 7.6 g/dl (6.4-8.2)
[2017-06-17 09:43] LABS: ALK PHOS 100 U/L (45-117)
[2017-06-17 10:45] VITALS: BP 162/90; PULSE 110; TEMP 97.9
[2017-06-17] MEDS ORDERED: PORTA CATH FLUSH 10 ML IVPUSH ONE (10:48)
[2017-06-17] MEDS ORDERED: CARBOPLATIN IVPB ONE (11:30)
[2017-06-17] MEDS ORDERED: MAGNESIUM OXIDE 400 MG TABLET (FP) PO ONE (16:30)
== END 2017-06-17 16:29 | disposition home or self-care (01) ==
LOC: JONCCHEMO 07:54 → J7W 10:19 → JONCCHEMO 16:29
PROVIDERS: ATTEND Internal Medicine Hematology & Oncology
DX: Z51.11 Encounter for antineoplastic chemotherapy (principal); C57.02 Malignant neoplasm of left fallopian tube; C54.1 Malignant neoplasm of endometrium
CPT/HCPCS: 36415; 80053; 80076; 83735; 85025; 96367; 96375; 96413; 96415; 96417; J2469

== ENCOUNTER 2017-06-18 07:21 | Day surgery (SDC) | payer OTHER ==
[2017-06-18] MEDS ORDERED: PEGFILGRASTIM 6 MG/0.6 ML DISP.SYRIN SQ ONE (08:00)
[2017-06-18 15:11] VITALS: TEMP 98
[2017-06-18 15:15] VITALS: BP 116/68; PULSE 94
== END 2017-06-18 15:15 | disposition home or self-care (01) ==
LOC: JONCCHEMO 07:21
PROVIDERS: ATTEND Internal Medicine Hematology & Oncology
PROC: 3E013GC Introduction of Other Therapeutic Substance into Subcutaneous Tissue, Percutaneous Approach (ICD-10-PCS; principal; 2017-06-18)
DX: C57.02 Malignant neoplasm of left fallopian tube (principal); C54.1 Malignant neoplasm of endometrium
CPT/HCPCS: 96372; J2505

== ENCOUNTER 2017-07-08 07:29 | Day surgery (SDC) | payer OTHER ==
[2017-07-08 09:21] LABS: BASOPHIL 0.3 % (0-2.0); MCH 31.8 pg (25.7-33.7); MCHC 33.1 g/dl (32.0-36.0); MEAN CELL VOLUME 95.9 fl (80-96); NEUTROPHILS 83.5 % (42.8-82.8); PLATELET COUNT 227 K/MM3 (134-434); RDW 17.6 % (11.6-15.6)
[2017-07-08 09:45] LABS: ALBUMIN 3.7 g/dl (3.4-5.0); ALK PHOS 120 U/L (45-117); ANION GAP 10 (8-16); BILIRUBIN,DIRECT 0.1 mg/dL (0.0-0.2); BILIRUBIN,TOTAL 0.6 mg/dL (0.2-1.0); CALCIUM 9.5 mg/dL (8.5-10.1); CO2 23 mmol/L (21-32); CREATININE 0.8 mg/dL (0.55-1.02); GLUCOSE,RANDOM 249 mg/dL (74-106); MAGNESIUM 1.7 mg/dL (1.8-2.4); SGOT/AST 29 U/L (15-37); SGPT/ALT 48 U/L (12-78); TOT PROT 7.5 g/dl (6.4-8.2)
[2017-07-08] MEDS ORDERED: PALONOSETRON HCL 0.25 MG in SODIUM CHLORIDE 50 ML IVPB ONE (10:00)
[2017-07-08] MEDS ORDERED: DEXAMETHASONE INJECTION 20 MG in SODIUM CHLORIDE 50 ML IVPB ONE (10:00)
[2017-07-08] MEDS ORDERED: SODIUM CHLORIDE 250 ML IV ONE (10:00)
[2017-07-08] MEDS ORDERED: RANITIDINE IVPB ONE (10:00)
[2017-07-08] MEDS ORDERED: SODIUM CHLORIDE IVPB ONE ×3 (10:00→13:30)
[2017-07-08] MEDS ORDERED: DIPHENHYDRAMINE IVPB ONE (10:00)
[2017-07-08 10:05] VITALS: TEMP 98.4
[2017-07-08] MEDS ORDERED: PORTA CATH FLUSH 10 ML IVPUSH ONE (10:05)
[2017-07-08] MEDS ORDERED: PACLITAXEL IVPB ONE (10:30)
[2017-07-08] MEDS ORDERED: CARBOPLATIN IVPB ONE (13:30)
[2017-07-08 15:22] VITALS: BP 148/92; PULSE 108
== END 2017-07-08 15:00 | disposition home or self-care (01) ==
LOC: JONCCHEMO 07:29 → J7W 09:44 → JONCCHEMO 15:00
PROVIDERS: ATTEND Internal Medicine Hematology & Oncology
DX: Z51.11 Encounter for antineoplastic chemotherapy (principal); C57.02 Malignant neoplasm of left fallopian tube; C54.1 Malignant neoplasm of endometrium
CPT/HCPCS: 36415; 80053; 80076; 82378; 83735; 85025; 86304; 96375; 96413; 96415; 96417; J2469

== ENCOUNTER 2017-07-09 07:39 | Day surgery (SDC) | payer OTHER ==
[2017-07-09] MEDS ORDERED: PEGFILGRASTIM 6 MG/0.6 ML DISP.SYRIN SQ ONE (09:00)
[2017-07-09 14:55] VITALS: BP 131/73; PULSE 108; TEMP 98
== END 2017-07-09 18:37 | disposition home or self-care (01) ==
LOC: JONCCHEMO 07:39 → J7W 14:27 → JONCCHEMO 18:37
PROVIDERS: ATTEND Internal Medicine Hematology & Oncology
PROC: 3E013GC Introduction of Other Therapeutic Substance into Subcutaneous Tissue, Percutaneous Approach (ICD-10-PCS; principal; 2017-07-09)
DX: C57.02 Malignant neoplasm of left fallopian tube (principal); C54.1 Malignant neoplasm of endometrium
CPT/HCPCS: 96372; J2505

== ENCOUNTER 2017-11-12 08:04 | Emergency (ER) | payer OTHER ==
[2017-11-12 08:12] VITALS: BP 159/83; PULSE 92; TEMP 99.4; BMI 37.6
--- NOTE | 2017-11-12 09:56 | PDOC ---
History of Present Illness - General Chief Complaint: Cold Symptoms Stated Complaint: R/O FLU Time Seen by Provider: 11/12/17 08:24 History Source: Patient Exam Limitations: No Limitations - History of Present Illness Initial Comments: 11/12/17 09:48 67 yr female with flu like symptoms started 2 days ago. pt denies nvd denies abd pain has cough sore throat fever, body aches. Past History - Past Medical History Allergies/Adverse Reactions: Allergies Allergy/AdvReac Type Severity Reaction Status Date / Time oxycodone AdvReac Mild Itching Verified 11/12/17 08:07 Home Medications: Ambulatory Orders Aspirin Coated [Ecotrin -] 81 mg PO DAILY 01/25/17 Rosuvastatin Calcium [Crestor] 10 mg PO HS 01/25/17 Oxycodone HCl/Acetaminophen [Percocet 5/325 -] 1 - 2 tab PO Q4H #20 tablet MDD 6 02/26/17 Simethicone [Mi-Acid] 80 mg PO TID #30 tab.chew 02/27/17 Oseltamivir Phosphate [Tamiflu] 75 mg PO BID #10 capsule 11/12/17 Anemia: No Asthma: No Cancer: Yes ([facility] January 2017 with chemo ) Cardiac Disorders: No CVA: No COPD: No CHF: No DVT: No Dementia: No Diabetes: No GI Disorders: No Disorders: No HTN: No Hypercholesterolemia: Yes Liver Disease: No Seizures: No Thyroid Disease: Yes (hypothyroid) - Surgical History Abdominal Surgery: No Appendectomy: No Cardiac Surgery: No Cholecystectomy: No Lung Surgery: Yes (lung sarcoidosis (bx for)) Neurologic Surgery: No Orthopedic Surgery: No - Family Disease History Family Disease History: Heart Disease: Grandparents - Suicide/Smoking/Psychosocial Hx Smoking History: Never smoked Have you smoked in the past 12 months: No Information on smoking cessation initiated: No Hx Alcohol Use: No Drug/Substance Use Hx: No Substance Use Type: None Hx Substance Use Treatment: No Respiratory Specific PMHX - Complaint Specific PMHX Angina: No Bronchitis: No Pneumonia: No Pulmonary Embolus: No TB (Tuberculosis): No Review of Systems - Review of Systems Able to Perform ROS?: Yes Is the patient limited Indonesian proficient: No Constitutional: Yes: Symptoms Reported HEENTM: Yes: Symptoms Reported Respiratory: Yes: Symptoms reported Musculoskeletal: Yes: Symptoms Reported *Physical Exam - Vital Signs Last Vital Signs Temp Pulse Resp BP Pulse Ox 99.4 F 92 H 18 159/83 100 11/12/17 08:08 11/12/17 08:08 11/12/17 08:08 11/12/17 08:08 11/12/17 08:08 - Physical Exam General Appearance: Yes: Nourished, Appropriately Dressed HEENT: positive: EOMI, OSCAR, TMs Normal, Pharyngeal Erythema. negative: Tonsillar Exudate, Tonsillar Erythema Neck: positive: Supple. negative: Lymphadenopathy (R), Lymphadenopathy (L) Respiratory/Chest: positive: Lungs Clear, Normal Breath Sounds Cardiovascular: positive: Regular Rhythm, Regular Rate Gastrointestinal/Abdominal: positive: Normal Bowel Sounds, Soft Lymphatic: negative: Adenopathy Musculoskeletal: positive: Normal Inspection Extremity: positive: Normal Capillary Refill, Normal Inspection, Normal Range of Motion Integumentary: positive: Normal Color, Dry, Warm Neurologic: positive: Fully Oriented, Alert, Normal Mood/Affect, Normal Response , Motor Strength 5/ ED Treatment Course - ADDITIONAL ORDERS Additional order review: 11/12/17 08:54 Group A Strep Rapid Antigen - Final Throat Medical Decision Making - Medical Decision Making 11/12/17 09:49 cc: sore throat, body aches , headache will check for strep and FLU 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 11/12/17 10:01 11/12/17 10:07 will treat for flu like illness with tamiflu pt has history of cancer with chemo treatment *DC/Admit/Observation/Transfer Diagnosis at time of Disposition: Influenza-like symptoms - Discharge Dispostion Disposition: HOME Condition at time of disposition: Good - Prescriptions Prescriptions: Oseltamivir Phosphate [Tamiflu] 75 mg PO BID #10 capsule - Referrals Referrals: Guicho Cline MD [Primary Care Provider] - - Patient Instructions Additional Instructions: drink pleanty of fluids to stay hydrated take ibuprofen 600-800mg every 8hrs for fever or body aches take the tamiflu as directed for 5 days please follow with your doctor in 2-3 days for any worsening symptoms - Post Discharge Activity
== END 2017-11-12 10:20 | disposition home or self-care (01) ==
LOC: JERFT 08:04
DX: J11.1 Influenza due to unidentified influenza virus with other respiratory manifestations (principal); E03.9 Hypothyroidism, unspecified; E78.00 Pure hypercholesterolemia, unspecified; Z85.42 Personal history of malignant neoplasm of other parts of uterus
CPT/HCPCS: 87070; 87430; 87804; 99281-25

== ENCOUNTER 2018-03-03 08:07 | Day surgery (SDC) | payer OTHER ==
[2018-02-28 17:14] VITALS: BMI 37.2
[2018-03-03 08:31] LABS: BASO % 0.9 % (0-2.0); EOS % 2.9 % (0-4.5); HEMATOCRIT 37.6 % (32.4-45.2); HEMOGLOBIN 12.9 GM/dL (10.7-15.3); LYMPH % 41.7 % (8-40); MCH 30.9 pg (25.7-33.7); MCHC 34.3 g/dl (32.0-36.0); MEAN CELL VOLUME 90.3 fl (80-96); MEAN PLT VOLUME 6.6 fl (7.5-11.1); NEUT % 46.5 % (42.8-82.8); PLATELET COUNT 225 K/MM3 (134-434); RBC 4.17 M/mm3 (3.60-5.2); RDW 13.8 % (11.6-15.6); WHITE BLOOD COUNT 5.5 K/mm3 (4.0-10.0)
[2018-03-03 08:47] LABS: INR 0.85 (0.82-1.09); PROTHROMBIN TIME (PATIENT) 9.6 SEC (9.7-13.0)
[2018-03-03 09:05] VITALS: TEMP 98.2
[2018-03-03 12:51] VITALS: BP 126/64; PULSE 76
--- NOTE | 2018-03-05 13:09 | PATH ---
Surgical Pathology Report Patient Name: FADI MOONEY [facility]. Rec. #: [id number] /Age/Gender: 1950 (Age: 68) / F Account: [id number] Location: RADIOLOGY Taken: 03/03/2018 Received: 03/03/2018 Reported: 03/05/2018 Physicians: Alexandre Winkler M.D. Nolan Hayes M.D. Specimen(s) Received PELVIC BX Clinical History 68 year old female with history of fallopian tube cancer, now with left omental mass Final Diagnosis PELVIC BIOPSY: HIGH GRADE ADENOCARCINOMA, CONSISTENT WITH SEROUS CARCINOMA. COMMENT: Morphologically the tumor is similar to the serous carcinoma in prior surgical specimen ([id number]). Immunohistochemical stains performed at [facility] ([id number]) showed P53 and WT-1 strongly expressed in the tumor. Interdepartmental case reviewed with consensus on diagnosis, 03/05/2018. Electronically Signed Cira Diaz M.D. Gross Description Received in formalin labeled "pelvic biopsy," is a 0.5 x 0.3 x 0.1 cm aggregate of suarez-brown soft tissue fragments. The formalin is filtered and the specimen is entirely submitted in one cassette. /03/03/2018 saudi03/03/2018
== END 2018-03-03 13:05 | disposition home or self-care (01) ==
LOC: JRADIR 08:07
PROVIDERS: ATTEND Internal Medicine Hematology & Oncology
PROC: 0WBH3ZX Excision of Retroperitoneum, Percutaneous Approach, Diagnostic (ICD-10-PCS; principal; 2018-03-03)
DX: C76.3 Malignant neoplasm of pelvis (principal); Z85.89 Personal history of malignant neoplasm of other organs and systems
CPT/HCPCS: 36415; 49180; 77012-TC; 85025; 85610; 88305-TC; C1769

== ENCOUNTER → 2018-03-25 | Day surgery (SDC) | payer OTHER ==
--- NOTE | 2018-03-26 16:27 | PATH ---
Cytology Non-Gynecological Report Patient Name: FADI MOONEY [facility]. Rec. #: [id number] /Age/Gender: 1950 (Age: 68) / F Account: [id number] Location: RADIOLOGY Taken: 03/25/2018 Received: 03/25/2018 Reported: 03/26/2018 Physicians: Nash Oropeza M.D. Specimen(s) Received LEFT THYROID 4.08X3.55X 2.26 CM. Clinical History Thyroid nodule Final Diagnosis THYROID, LEFT, FINE NEEDLE ASPIRATION: SATISFACTORY FOR EVALUATION BETHESDA CLASS II: BENIGN CYTOLOGIC FINDINGS ARE CONSISTENT WITH A BENIGN FOLLICULAR NODULE. SMALL FOLLICULAR CELLS, MACROPHAGES, AND COLLOID PRESENT. Electronically Signed Cira Diaz M.D. Gross Description Received are 7 direct smears, four of which are air-dried and Diff-Quik stained, and three of which are alcohol fixed and Pap stained. Also received is 20 ml of bloody formalin from which one cellblock is prepared.
== END | disposition home or self-care (01) ==
LOC: JRADIR 09:08
PROVIDERS: ATTEND Internal Medicine Hematology & Oncology
PROC: 0G9G3ZX Drainage of Left Thyroid Gland Lobe, Percutaneous Approach, Diagnostic (ICD-10-PCS; principal; 2018-03-25)
DX: E04.1 Nontoxic single thyroid nodule (principal)
CPT/HCPCS: 76942; 88173; 88305-TC

== ENCOUNTER 2018-05-15 07:40 | Day surgery (SDC) | payer OTHER ==
[2018-05-15 08:51] LABS: BASO % 0.7 % (0-2.0); EOS % 2.3 % (0-4.5); HEMATOCRIT 35.3 % (32.4-45.2); HEMOGLOBIN 12.2 GM/dL (10.7-15.3); LYMPH % 47.3 % (8-40); MCH 31.1 pg (25.7-33.7); MCHC 34.5 g/dl (32.0-36.0); MEAN CELL VOLUME 90.3 fl (80-96); MEAN PLT VOLUME 6.2 fl (7.5-11.1); MONO % 9.5 % (3.8-10.2); NEUT % 40.2 % (42.8-82.8); PLATELET COUNT 204 K/MM3 (134-434); RBC 3.91 M/mm3 (3.60-5.2); RDW 13.7 % (11.6-15.6); WHITE BLOOD COUNT 5.1 K/mm3 (4.0-10.0)
[2018-05-15] MEDS ORDERED: SODIUM CHLORIDE 250 ML IV ONE ×2 (09:00→13:30)
[2018-05-15 09:22] LABS: ALBUMIN 3.3 g/dl (3.4-5.0); ANION GAP 6 (8-16); BILIRUBIN,DIRECT 0.2 mg/dL (0.0-0.2); BLOOD UREA NITROGEN 13 mg/dL (7-18); CALCIUM 9.2 mg/dL (8.5-10.1); CHLORIDE 110 mmol/L (98-107); CO2 27 mmol/L (21-32); CREATININE 0.7 mg/dL (0.55-1.02); GLUCOSE,RANDOM 105 mg/dL (74-106); POTASSIUM 4.5 mmol/L (3.5-5.1); SGOT/AST 37 U/L (15-37); SGPT/ALT 48 U/L (12-78); SODIUM 143 mmol/L (136-145)
[2018-05-15 09:24] LABS: ALK PHOS 89 U/L (45-117); BILIRUBIN,TOTAL 0.4 mg/dL (0.2-1.0); TOT PROT 6.8 g/dl (6.4-8.2)
[2018-05-15] MEDS ORDERED: DEXAMETHASONE INJECTION 10 MG, DIPHENHYDRAMINE 50 MG, RANITIDINE INJECTION 50 MG in SOD... IVPB ONE (10:00)
[2018-05-15] MEDS ORDERED: PALONOSETRON HCL 0.25 MG/5 ML VIAL IVPUSH ONE (10:00)
[2018-05-15] MEDS ORDERED: DEXTROSE 5% IV ONE (10:30)
[2018-05-15] MEDS ORDERED: DOXORUBICIN HCL LIPOSOMAL IV ONE (10:30)
[2018-05-15] MEDS ORDERED: WATER IV ONE (10:30)
[2018-05-15 10:44] LABS: URINE APPEARANCE CLEAR; URINE BILIRUBIN NEGATIVE (<2.0 mg/dL); URINE COLOR STRAW; URINE GLUCOSE (UA) NEGATIVE (NEGATIVE); URINE KETONE NEGATIVE (NEGATIVE); URINE LEUK ESTERASE NEGATIVE (NEGATIVE); URINE NITRITE NEGATIVE (NEGATIVE); URINE PROTEIN NEGATIVE (NEGATIVE); URINE UROBILINOGEN NEGATIVE mg/dL (0.2-1.0)
[2018-05-15 10:47] LABS: EPI CELLS RARE /HPF (FEW); URINE MUCUS RARE
[2018-05-15] MEDS ORDERED: SODIUM CHLORIDE IV ONE (12:00)
[2018-05-15] MEDS ORDERED: BEVACIZUMAB IV ONE (12:00)
[2018-05-15 17:56] VITALS: TEMP 98.2
[2018-05-15 17:58] VITALS: BP 126/69; PULSE 62
[2018-05-15] MEDS ORDERED: PORTA CATH FLUSH 10 ML IVPUSH ONE (18:09)
== END 2018-05-15 15:45 | disposition home or self-care (01) ==
LOC: JONCCHEMO 07:40 → J7W 09:42 → JONCCHEMO 15:45
PROVIDERS: ATTEND Internal Medicine Hematology & Oncology
DX: Z51.11 Encounter for antineoplastic chemotherapy (principal); C57.02 Malignant neoplasm of left fallopian tube; C54.1 Malignant neoplasm of endometrium
CPT/HCPCS: 36415; 80048; 80076; 81003; 81015; 83735; 85025; 86301; 86304; 96361; 96375; 96413; 96415; 96417; J1100; J2469; J9035; Q2049

== ENCOUNTER 2018-06-05 07:37 | Day surgery (SDC) | payer OTHER ==
[2018-06-05] MEDS ORDERED: SODIUM CHLORIDE IV ONE (08:00)
[2018-06-05] MEDS ORDERED: BEVACIZUMAB IV ONE (08:00)
[2018-06-05 08:58] LABS: BASO % 1.3 % (0-2.0); EOS % 1.6 % (0-4.5); HEMATOCRIT 34.4 % (32.4-45.2); HEMOGLOBIN 11.5 GM/dL (10.7-15.3); LYMPH % 54.9 % (8-40); MCH 30.4 pg (25.7-33.7); MCHC 33.5 g/dl (32.0-36.0); MEAN CELL VOLUME 90.7 fl (80-96); MEAN PLT VOLUME 6.6 fl (7.5-11.1); MONO % 19.8 % (3.8-10.2); NEUT % 22.4 % (42.8-82.8); PLATELET COUNT 233 K/MM3 (134-434); RBC 3.79 M/mm3 (3.60-5.2); WHITE BLOOD COUNT 3.4 K/mm3 (4.0-10.0)
[2018-06-05] MEDS ORDERED: SODIUM CHLORIDE 250 ML IV ONE (09:00)
[2018-06-05 09:30] LABS: ALBUMIN 3.3 g/dl (3.4-5.0); ANION GAP 9 MMOL/L (8-16); BILIRUBIN,TOTAL 0.4 mg/dL (0.2-1.0); BLOOD UREA NITROGEN 9 mg/dL (7-18); CHLORIDE 107 mmol/L (98-107); CO2 26 mmol/L (21-32); CREATININE 0.5 mg/dL (0.55-1.02); GLUCOSE,RANDOM 114 mg/dL (74-106); POTASSIUM 4.9 mmol/L (3.5-5.1); SGOT/AST 32 U/L (15-37); SGPT/ALT 36 U/L (12-78); SODIUM 142 mmol/L (136-145); TOT PROT 6.7 g/dl (6.4-8.2)
[2018-06-05 09:31] LABS: ALK PHOS 112 U/L (45-117)
[2018-06-05 09:32] LABS: ALBUMIN 3.2 g/dl (3.4-5.0); MAGNESIUM 1.9 mg/dL (1.8-2.4)
[2018-06-05 09:36] LABS: ALK PHOS 112 U/L (45-117); BILIRUBIN,DIRECT < 0.2 mg/dL (0.0-0.2); BILIRUBIN,TOTAL 0.4 mg/dL (0.2-1.0); SGOT/AST 33 U/L (15-37); SGPT/ALT 38 U/L (12-78); TOT PROT 6.7 g/dl (6.4-8.2)
[2018-06-05] MEDS ORDERED: amLODIPine BESYLATE 5 MG TABLET (FP) PO ONE (09:45)
[2018-06-05] MEDS ORDERED: amLODIPine BESYLATE 2.5 MG TABLET (FP) PO PRN (12:00)
[2018-06-05 13:10] VITALS: TEMP 97.8
[2018-06-05 13:46] VITALS: BP 155/70; PULSE 57
[2018-06-05] MEDS ORDERED: PORTA CATH FLUSH 10 ML IVPUSH ONE (13:46)
== END 2018-06-05 12:00 | disposition home or self-care (01) ==
LOC: JONCCHEMO 07:37 → J7W 09:28 → JONCCHEMO 12:00
PROVIDERS: ATTEND Internal Medicine Hematology & Oncology
PROC: 3E04305 Introduction of Other Antineoplastic into Central Vein, Percutaneous Approach (ICD-10-PCS; principal; 2018-06-05)
PROC: 3E0437Z Introduction of Electrolytic and Water Balance Substance into Central Vein, Percutaneous Approach (ICD-10-PCS; 2018-06-05)
DX: Z51.11 Encounter for antineoplastic chemotherapy (principal); C57.02 Malignant neoplasm of left fallopian tube; C54.1 Malignant neoplasm of endometrium; E78.00 Pure hypercholesterolemia, unspecified; E03.9 Hypothyroidism, unspecified; K21.9 Gastro-esophageal reflux disease without esophagitis
CPT/HCPCS: 36415; 80053; 80076; 83735; 84156; 85025; 96413; J9035

== ENCOUNTER 2018-06-12 07:32 | Day surgery (SDC) | payer OTHER ==
[2018-06-12] MEDS ORDERED: RANITIDINE IVPB ONE (08:00)
[2018-06-12] MEDS ORDERED: SODIUM CHLORIDE IVPB ONE (08:00)
[2018-06-12] MEDS ORDERED: PALONOSETRON HCL 0.25 MG/5 ML VIAL IVPUSH ONE (08:00)
[2018-06-12] MEDS ORDERED: DEXAMETHASONE IVPB ONE (08:00)
[2018-06-12] MEDS ORDERED: DOXORUBICIN HCL LIPOSOMAL IV ONE (08:30)
[2018-06-12] MEDS ORDERED: DEXTROSE 5% IV ONE (08:30)
[2018-06-12] MEDS ORDERED: WATER IV ONE (08:30)
[2018-06-12] MEDS ORDERED: SODIUM CHLORIDE 250 ML IV ONE (09:00)
[2018-06-12 09:13] LABS: BASO % 0.8 % (0-2.0); EOS % 0.6 % (0-4.5); HEMATOCRIT 37.4 % (32.4-45.2); HEMOGLOBIN 12.8 GM/dL (10.7-15.3); LYMPH % 38.5 % (8-40); MCH 30.8 pg (25.7-33.7); MCHC 34.1 g/dl (32.0-36.0); MEAN CELL VOLUME 90.2 fl (80-96); MEAN PLT VOLUME 6.8 fl (7.5-11.1); MONO % 19.7 % (3.8-10.2); NEUT % 40.4 % (42.8-82.8); PLATELET COUNT 262 K/MM3 (134-434); RBC 4.15 M/mm3 (3.60-5.2); RDW 14.8 % (11.6-15.6); WHITE BLOOD COUNT 5.3 K/mm3 (4.0-10.0)
[2018-06-12 09:36] LABS: ALBUMIN 3.4 g/dl (3.4-5.0); ALBUMIN 3.5 g/dl (3.4-5.0); ANION GAP 9 MMOL/L (8-16); BLOOD UREA NITROGEN 17 mg/dL (7-18); CALCIUM 9.2 mg/dL (8.5-10.1); CHLORIDE 103 mmol/L (98-107); CO2 27 mmol/L (21-32); CREATININE 0.6 mg/dL (0.55-1.02); GLUCOSE,RANDOM 116 mg/dL (74-106); POTASSIUM 4.7 mmol/L (3.5-5.1); SGOT/AST 40 U/L (15-37); SGPT/ALT 40 U/L (13-61); SODIUM 139 mmol/L (136-145)
[2018-06-12 09:37] LABS: ALK PHOS 106 U/L (45-117); BILIRUBIN,TOTAL 0.4 mg/dL (0.2-1.0); TOT PROT 7.2 g/dl (6.4-8.2)
[2018-06-12 09:41] LABS: ALK PHOS 108 U/L (45-117); BILIRUBIN,DIRECT < 0.2 mg/dL (0.0-0.2); BILIRUBIN,TOTAL 0.5 mg/dL (0.2-1.0); SGOT/AST 37 U/L (15-37); SGPT/ALT 40 U/L (13-61); TOT PROT 7.1 g/dl (6.4-8.2)
[2018-06-12] MEDS ORDERED: amLODIPine BESYLATE 5 MG TABLET (FP) PO ONE (10:45)
[2018-06-12] MEDS ORDERED: PORTA CATH FLUSH 10 ML IVPUSH ONE (11:20)
[2018-06-12 16:27] VITALS: BP 155/60; PULSE 76
[2018-06-12 16:28] VITALS: TEMP 98
== END 2018-06-12 13:45 | disposition home or self-care (01) ==
LOC: JONCCHEMO 07:32 → J7W 10:27 → JONCCHEMO 13:45
PROVIDERS: ATTEND Internal Medicine Hematology & Oncology
DX: Z51.11 Encounter for antineoplastic chemotherapy (principal); C57.02 Malignant neoplasm of left fallopian tube; C54.1 Malignant neoplasm of endometrium
CPT/HCPCS: 36415; 80053; 80076; 83735; 84156; 85025; 96360; 96361; 96367; 96375; 96413; J1100; J2469; Q2049

== ENCOUNTER 2018-06-13 07:28 | Day surgery (SDC) | payer OTHER ==
[2018-06-13] MEDS ORDERED: PEGFILGRASTIM 6 MG/0.6 ML DISP.SYRIN SQ ONE (09:00)
[2018-06-13 14:21] VITALS: BP 140/84; PULSE 76
[2018-06-13 14:25] VITALS: TEMP 97.7
== END 2018-06-13 14:00 | disposition home or self-care (01) ==
LOC: JONCCHEMO 07:28 → J7W 13:50 → JONCCHEMO 14:00
PROVIDERS: ATTEND Internal Medicine Hematology & Oncology
PROC: 3E013GC Introduction of Other Therapeutic Substance into Subcutaneous Tissue, Percutaneous Approach (ICD-10-PCS; principal; 2018-06-13)
DX: C57.02 Malignant neoplasm of left fallopian tube (principal); C54.1 Malignant neoplasm of endometrium; Z76.89 Persons encountering health services in other specified circumstances
CPT/HCPCS: 96372; J2505

== ENCOUNTER 2018-06-26 07:27 | Day surgery (SDC) | payer OTHER ==
[2018-06-26] MEDS ORDERED: SODIUM CHLORIDE IV ONE (08:00)
[2018-06-26] MEDS ORDERED: BEVACIZUMAB IV ONE (08:00)
[2018-06-26] MEDS ORDERED: SODIUM CHLORIDE 250 ML IV ONE (08:30)
[2018-06-26 08:46] LABS: BASO % 1.5 % (0-2.0); EOS % 2.6 % (0-4.5); HEMATOCRIT 35.1 % (32.4-45.2); HEMOGLOBIN 11.7 GM/dL (10.7-15.3); MCH 30.3 pg (25.7-33.7); MCHC 33.4 g/dl (32.0-36.0); MEAN CELL VOLUME 90.8 fl (80-96); MEAN PLT VOLUME 7.7 fl (7.5-11.1); MONO % 5.2 % (3.8-10.2); NEUT % 61.7 % (42.8-82.8); PLATELET COUNT 179 K/MM3 (134-434); RBC 3.86 M/mm3 (3.60-5.2); RDW 15.2 % (11.6-15.6); WHITE BLOOD COUNT 4.9 K/mm3 (4.0-10.0)
[2018-06-26 08:56] LABS: URINE APPEARANCE CLEAR; URINE BILIRUBIN NEGATIVE (<2.0 mg/dL); URINE COLOR LTYELLOW; URINE GLUCOSE (UA) NEGATIVE (NEGATIVE); URINE KETONE NEGATIVE (NEGATIVE); URINE LEUK ESTERASE NEGATIVE (NEGATIVE); URINE NITRITE NEGATIVE (NEGATIVE); URINE PROTEIN NEGATIVE (NEGATIVE); URINE UROBILINOGEN NEGATIVE mg/dL (0.2-1.0)
[2018-06-26 09:12] LABS: ALBUMIN 3.2 g/dl (3.4-5.0); ALK PHOS 126 U/L (45-117); ANION GAP 11 MMOL/L (8-16); BILIRUBIN,TOTAL 0.6 mg/dL (0.2-1); BLOOD UREA NITROGEN 19 mg/dL (7-18); CALCIUM 9.7 mg/dL (8.5-10.1); CHLORIDE 110 mmol/L (98-107); CO2 20 mmol/L (21-32); CREATININE 0.6 mg/dL (0.55-1.3); GLUCOSE,RANDOM 116 mg/dL (74-106); POTASSIUM 5.1 mmol/L (3.5-5.1); SGOT/AST 31 U/L (15-37); SGPT/ALT 36 U/L (13-61); SODIUM 141 mmol/L (136-145); TOT PROT 6.8 g/dl (6.4-8.2)
[2018-06-26 09:13] LABS: ALBUMIN 3.2 g/dl (3.4-5.0); BILIRUBIN,DIRECT 0.2 mg/dL (0.0-0.2); BILIRUBIN,TOTAL 0.6 mg/dL (0.2-1); MAGNESIUM 1.7 mg/dL (1.8-2.4); TOT PROT 6.7 g/dl (6.4-8.2)
[2018-06-26] MEDS ORDERED: MAGNESIUM SULF 50% (8.12 MEQ/2 ML-1 GM VIAL) IVPB ONE (10:15)
[2018-06-26 15:18] VITALS: TEMP 98
[2018-06-26] MEDS ORDERED: PORTA CATH FLUSH 10 ML IVPUSH ONE (16:35)
[2018-06-26 16:36] VITALS: BP 136/72; PULSE 80
== END 2018-06-26 12:15 | disposition home or self-care (01) ==
LOC: JONCCHEMO 07:27 → J7W 09:21 → JONCCHEMO 12:15
PROVIDERS: ATTEND Internal Medicine Hematology & Oncology
DX: Z51.11 Encounter for antineoplastic chemotherapy (principal); C57.02 Malignant neoplasm of left fallopian tube; C54.1 Malignant neoplasm of endometrium
CPT/HCPCS: 36415; 80053; 80076; 81003; 83735; 84156; 85025; 96361; 96367; 96413; 96417; J9035

== ENCOUNTER 2018-07-10 07:18 | Day surgery (SDC) | payer OTHER ==
[2018-07-10 09:42] LABS: BASO % 1.4 % (0-2.0); EOS % 2.6 % (0-4.5); HEMATOCRIT 38.1 % (32.4-45.2); HEMOGLOBIN 12.9 GM/dL (10.7-15.3); LYMPH % 35.2 % (8-40); MCH 30.4 pg (25.7-33.7); MCHC 33.8 g/dl (32.0-36.0); MEAN CELL VOLUME 90.1 fl (80-96); MONO % 15.4 % (3.8-10.2); NEUT % 45.4 % (42.8-82.8); PLATELET COUNT 294 K/MM3 (134-434); RBC 4.23 M/mm3 (3.60-5.2); RDW 15.9 % (11.6-15.6); WHITE BLOOD COUNT 5.3 K/mm3 (4.0-10.0)
[2018-07-10] MEDS ORDERED: RANITIDINE IVPB ONE (10:00)
[2018-07-10] MEDS ORDERED: SODIUM CHLORIDE IVPB ONE (10:00)
[2018-07-10] MEDS ORDERED: DEXAMETHASONE IVPB ONE (10:00)
[2018-07-10] MEDS ORDERED: PALONOSETRON HCL 0.25 MG/5 ML VIAL IVPUSH ONE (10:00)
[2018-07-10 10:13] LABS: ALBUMIN 3.6 g/dl (3.4-5.0); BILIRUBIN,DIRECT 0.1 mg/dL (0.0-0.2); BILIRUBIN,TOTAL 0.4 mg/dL (0.2-1); TOT PROT 7.7 g/dl (6.4-8.2)
[2018-07-10 10:18] LABS: ALBUMIN 3.6 g/dl (3.4-5.0); ALK PHOS 106 U/L (45-117); ANION GAP 9 MMOL/L (8-16); BILIRUBIN,TOTAL 0.4 mg/dL (0.2-1); BLOOD UREA NITROGEN 19 mg/dL (7-18); CALCIUM 9.6 mg/dL (8.5-10.1); CHLORIDE 110 mmol/L (98-107); CO2 22 mmol/L (21-32); CREATININE 0.6 mg/dL (0.55-1.3); GLUCOSE,RANDOM 123 mg/dL (74-106); POTASSIUM 4.7 mmol/L (3.5-5.1); SGOT/AST 50 U/L (15-37); SGPT/ALT 47 U/L (13-61); SODIUM 141 mmol/L (136-145); TOT PROT 7.6 g/dl (6.4-8.2)
[2018-07-10] MEDS ORDERED: DEXTROSE 5% IV ONE (10:30)
[2018-07-10] MEDS ORDERED: DOXORUBICIN HCL LIPOSOMAL IV ONE (10:30)
[2018-07-10] MEDS ORDERED: WATER IV ONE (10:30)
[2018-07-10] MEDS ORDERED: SODIUM CHLORIDE 250 ML IV ONE (11:00)
[2018-07-10] MEDS ORDERED: ALTEPLASE 2 MG VIAL CVP ONE (11:15)
[2018-07-10 14:05] VITALS: TEMP 97.5
[2018-07-10] MEDS ORDERED: PORTA CATH FLUSH 10 ML IVPUSH ONE (14:05)
[2018-07-10 14:34] VITALS: BP 156/72; PULSE 82
== END 2018-07-10 14:30 | disposition home or self-care (01) ==
LOC: JONCCHEMO 07:18 → J7W 10:04 → JONCCHEMO 14:30
PROVIDERS: ATTEND Internal Medicine Hematology & Oncology
DX: Z51.11 Encounter for antineoplastic chemotherapy (principal); C57.02 Malignant neoplasm of left fallopian tube; C54.1 Malignant neoplasm of endometrium
CPT/HCPCS: 36415; 80053; 80076; 83735; 85025; 86301; 86304; 96361; 96367; 96375; 96413; J1100; J2469; J2997; Q2049

== ENCOUNTER 2018-07-11 07:47 | Day surgery (SDC) | payer OTHER ==
[2018-07-11] MEDS ORDERED: PEGFILGRASTIM 6 MG/0.6 ML DISP.SYRIN SQ ONE (10:00)
[2018-07-11 15:32] VITALS: BP 156/74; PULSE 85; TEMP 97.9
== END 2018-07-11 14:35 | disposition home or self-care (01) ==
LOC: JONCCHEMO 07:47 → J7W 14:00 → JONCCHEMO 14:35
PROVIDERS: ATTEND Internal Medicine Hematology & Oncology
PROC: 3E013GC Introduction of Other Therapeutic Substance into Subcutaneous Tissue, Percutaneous Approach (ICD-10-PCS; principal; 2018-07-11)
DX: C57.02 Malignant neoplasm of left fallopian tube (principal); C54.1 Malignant neoplasm of endometrium; Z76.89 Persons encountering health services in other specified circumstances
CPT/HCPCS: 96372; J2505

== ENCOUNTER 2018-07-17 07:40 | Day surgery (SDC) | payer OTHER ==
[2018-07-17 09:25] LABS: BASO % 0.5 % (0-2.0); EOS % 0.7 % (0-4.5); HEMATOCRIT 38.4 % (32.4-45.2); HEMOGLOBIN 12.8 GM/dL (10.7-15.3); LYMPH % 11.5 % (8-40); MCH 30.2 pg (25.7-33.7); MCHC 33.3 g/dl (32.0-36.0); MEAN CELL VOLUME 90.8 fl (80-96); MEAN PLT VOLUME 7.5 fl (7.5-11.1); NEUT % 82.3 % (42.8-82.8); PLATELET COUNT 168 K/MM3 (134-434); RBC 4.23 M/mm3 (3.60-5.2); RDW 15.8 % (11.6-15.6); WHITE BLOOD COUNT 12.6 K/mm3 (4.0-10.0)
[2018-07-17 09:50] LABS: ALBUMIN 3.4 g/dl (3.4-5.0); ALK PHOS 378 U/L (45-117); ANION GAP 9 MMOL/L (8-16); BILIRUBIN,TOTAL 0.2 mg/dL (0.2-1); BLOOD UREA NITROGEN 13 mg/dL (7-18); CALCIUM 9.4 mg/dL (8.5-10.1); CHLORIDE 104 mmol/L (98-107); CO2 25 mmol/L (21-32); CREATININE 0.6 mg/dL (0.55-1.3); GLUCOSE,RANDOM 132 mg/dL (74-106); POTASSIUM 4.4 mmol/L (3.5-5.1); SGOT/AST 94 U/L (15-37); SGPT/ALT 68 U/L (13-61); SODIUM 138 mmol/L (136-145); TOT PROT 7.2 g/dl (6.4-8.2)
[2018-07-17 09:51] LABS: ALBUMIN 3.5 g/dl (3.4-5.0); BILIRUBIN,DIRECT 0.1 mg/dL (0.0-0.2); BILIRUBIN,TOTAL 0.3 mg/dL (0.2-1); MAGNESIUM 1.8 mg/dL (1.8-2.4); TOT PROT 7.4 g/dl (6.4-8.2)
[2018-07-17] MEDS ORDERED: SODIUM CHLORIDE IV ONE (10:00)
[2018-07-17] MEDS ORDERED: BEVACIZUMAB IV ONE (10:00)
[2018-07-17] MEDS ORDERED: SODIUM CHLORIDE 250 ML IV ONE (10:30)
[2018-07-17 11:26] LABS: ANISOCYTOSIS 1+; MACROCYTOSIS 1+; PLATELET ESTIMATE NORMAL
[2018-07-17 12:21] LABS: URINE APPEARANCE SLCLOUDY; URINE BILIRUBIN NEGATIVE (<2.0 mg/dL); URINE COLOR LTYELLOW; URINE GLUCOSE (UA) NEGATIVE (NEGATIVE); URINE KETONE NEGATIVE (NEGATIVE); URINE LEUK ESTERASE NEGATIVE (NEGATIVE); URINE NITRITE NEGATIVE (NEGATIVE); URINE PROTEIN NEGATIVE (NEGATIVE); URINE UROBILINOGEN NEGATIVE mg/dL (0.2-1.0)
[2018-07-17 14:01] VITALS: TEMP 97.9
[2018-07-17 14:08] VITALS: BP 157/74; PULSE 157
== END 2018-07-17 13:15 | disposition home or self-care (01) ==
LOC: JONCCHEMO 07:40 → J7W 10:17 → JONCCHEMO 13:15
PROVIDERS: ATTEND Internal Medicine Hematology & Oncology
DX: Z51.11 Encounter for antineoplastic chemotherapy (principal); C57.02 Malignant neoplasm of left fallopian tube; C54.1 Malignant neoplasm of endometrium
CPT/HCPCS: 36415; 80053; 80076; 81003; 83735; 85025; 96361; 96413; J9035

== ENCOUNTER 2018-08-19 07:35 | Day surgery (SDC) | payer OTHER ==
[2018-08-19 09:19] LABS: BASO % 0.5 % (0-2.0); EOS % 1.5 % (0-4.5); HEMATOCRIT 31.7 % (32.4-45.2); HEMOGLOBIN 11.1 GM/dL (10.7-15.3); LYMPH % 29.1 % (8-40); MCH 32.1 pg (25.7-33.7); MEAN CELL VOLUME 91.8 fl (80-96); MEAN PLT VOLUME 7.5 fl (7.5-11.1); MONO % 16.9 % (3.8-10.2); PLATELET COUNT 205 K/MM3 (134-434); RBC 3.46 M/mm3 (3.60-5.2); RDW 16.4 % (11.6-15.6)
[2018-08-19 09:34] LABS: URINE APPEARANCE CLEAR; URINE BILIRUBIN NEGATIVE (<2.0 mg/dL); URINE COLOR STRAW; URINE GLUCOSE (UA) NEGATIVE (NEGATIVE); URINE KETONE NEGATIVE (NEGATIVE); URINE LEUK ESTERASE NEGATIVE (NEGATIVE); URINE NITRITE NEGATIVE (NEGATIVE); URINE PROTEIN NEGATIVE (NEGATIVE); URINE UROBILINOGEN NEGATIVE mg/dL (0.2-1.0)
[2018-08-19 09:48] LABS: ALBUMIN 3.3 g/dl (3.4-5.0); ALK PHOS 86 U/L (45-117); ANION GAP 11 MMOL/L (8-16); BILIRUBIN,TOTAL 0.4 mg/dL (0.2-1); BLOOD UREA NITROGEN 17 mg/dL (7-18); CALCIUM 9.1 mg/dL (8.5-10.1); CHLORIDE 107 mmol/L (98-107); CO2 24 mmol/L (21-32); CREATININE 0.7 mg/dL (0.55-1.3); GLUCOSE,RANDOM 132 mg/dL (74-106); POTASSIUM 4.7 mmol/L (3.5-5.1); SGOT/AST 34 U/L (15-37); SGPT/ALT 42 U/L (13-61); SODIUM 142 mmol/L (136-145); TOT PROT 6.7 g/dl (6.4-8.2)
[2018-08-19] MEDS ORDERED: SODIUM CHLORIDE IVPB ONE (10:00)
[2018-08-19] MEDS ORDERED: PALONOSETRON HCL 0.25 MG/5 ML VIAL IVPUSH ONE (10:00)
[2018-08-19] MEDS ORDERED: RANITIDINE IVPB ONE (10:00)
[2018-08-19] MEDS ORDERED: DEXAMETHASONE IVPB ONE (10:00)
[2018-08-19] MEDS ORDERED: DOXORUBICIN HCL LIPOSOMAL IV ONE (10:30)
[2018-08-19] MEDS ORDERED: WATER IV ONE (10:30)
[2018-08-19] MEDS ORDERED: DEXTROSE 5% IV ONE (10:30)
[2018-08-19 10:37] LABS: BILIRUBIN,DIRECT 0.1 mg/dL (0.0-0.2); MAGNESIUM 1.9 mg/dL (1.8-2.4)
[2018-08-19] MEDS ORDERED: BEVACIZUMAB IV ONE (11:30)
[2018-08-19] MEDS ORDERED: SODIUM CHLORIDE IV ONE (11:30)
[2018-08-19] MEDS ORDERED: SODIUM CHLORIDE 250 ML IV ONE (12:00)
[2018-08-19 16:53] VITALS: TEMP 97.7
[2018-08-19] MEDS ORDERED: PORTA CATH FLUSH 10 ML IVPUSH ONE (16:53)
[2018-08-19 16:54] VITALS: BP 140/62; PULSE 78
== END 2018-08-19 15:00 | disposition home or self-care (01) ==
LOC: JONCCHEMO 07:35 → J7W 09:54 → JONCCHEMO 15:00
PROVIDERS: ATTEND Internal Medicine Hematology & Oncology
DX: Z51.11 Encounter for antineoplastic chemotherapy (principal); C57.02 Malignant neoplasm of left fallopian tube; C54.1 Malignant neoplasm of endometrium
CPT/HCPCS: 36415; 80053; 80076; 81003; 83735; 84156; 85025; 96361; 96367; 96375; 96413; 96417; J1100; J2469; J9035; Q2049

== ENCOUNTER 2018-08-20 07:49 | Day surgery (SDC) | payer OTHER ==
[2018-08-20] MEDS ORDERED: PEGFILGRASTIM 6 MG/0.6 ML DISP.SYRIN SQ ONE (10:00)
[2018-08-20 15:38] VITALS: BP 138/65; PULSE 68; TEMP 98.5
== END 2018-08-20 13:45 | disposition home or self-care (01) ==
LOC: JONCCHEMO 07:49 → J7W 13:39 → JONCCHEMO 13:45
PROVIDERS: ATTEND Internal Medicine Hematology & Oncology
PROC: 3E013GC Introduction of Other Therapeutic Substance into Subcutaneous Tissue, Percutaneous Approach (ICD-10-PCS; principal; 2018-08-20)
DX: C57.02 Malignant neoplasm of left fallopian tube (principal); C54.1 Malignant neoplasm of endometrium; Z76.89 Persons encountering health services in other specified circumstances
CPT/HCPCS: 96372; J2505

== ENCOUNTER 2018-09-11 06:13 | Day surgery (SDC) | payer OTHER ==
[2018-09-11 09:59] LABS: EOS % 2.8 % (0-4.5); HEMATOCRIT 31.4 % (32.4-45.2); LYMPH % 32.2 % (8-40); MCH 32.5 pg (25.7-33.7); MEAN CELL VOLUME 92.9 fl (80-96); MEAN PLT VOLUME 7.3 fl (7.5-11.1); MONO % 13.3 % (3.8-10.2); NEUT % 50.7 % (42.8-82.8); PLATELET COUNT 188 K/MM3 (134-434); RBC 3.38 M/mm3 (3.60-5.2); RDW 16.8 % (11.6-15.6)
[2018-09-11] MEDS ORDERED: SODIUM CHLORIDE IV ONE (10:00)
[2018-09-11] MEDS ORDERED: BEVACIZUMAB IV ONE (10:00)
[2018-09-11] MEDS ORDERED: SODIUM CHLORIDE 250 ML IV ONE (10:30)
[2018-09-11 10:54] LABS: ALBUMIN 3.2 g/dl (3.4-5.0); ALK PHOS 87 U/L (45-117); ANION GAP 10 MMOL/L (8-16); BILIRUBIN,DIRECT 0.1 mg/dL (0.0-0.2); BILIRUBIN,TOTAL 0.3 mg/dL (0.2-1); BLOOD UREA NITROGEN 13 mg/dL (7-18); CALCIUM 8.6 mg/dL (8.5-10.1); CHLORIDE 112 mmol/L (98-107); CO2 21 mmol/L (21-32); CREATININE 0.8 mg/dL (0.55-1.3); GLUCOSE,RANDOM 123 mg/dL (74-106); MAGNESIUM 2.1 mg/dL (1.8-2.4); POTASSIUM 4.6 mmol/L (3.5-5.1); SGOT/AST 38 U/L (15-37); SGPT/ALT 52 U/L (13-61); SODIUM 144 mmol/L (136-145); TOT PROT 6.6 g/dl (6.4-8.2)
[2018-09-11 11:00] LABS: URINE APPEARANCE CLEAR; URINE BILIRUBIN NEGATIVE (<2.0 mg/dL); URINE COLOR LTYELLOW; URINE GLUCOSE (UA) NEGATIVE (NEGATIVE); URINE KETONE NEGATIVE (NEGATIVE); URINE LEUK ESTERASE NEGATIVE (NEGATIVE); URINE NITRITE NEGATIVE (NEGATIVE); URINE PROTEIN 2+ (NEGATIVE); URINE UROBILINOGEN NEGATIVE mg/dL (0.2-1.0)
[2018-09-11] MEDS ORDERED: ALTEPLASE 2 MG VIAL CVP ONE (11:00)
[2018-09-11 11:08] LABS: EPI CELLS RARE /HPF (FEW); URINE HYALINE CAST 7 /lpf; URINE MUCUS RARE
[2018-09-11 16:12] VITALS: TEMP 97.4
[2018-09-11 16:25] VITALS: BP 137/73; PULSE 61
[2018-09-11] MEDS ORDERED: PORTA CATH FLUSH 10 ML IVPUSH ONE (16:25)
== END 2018-09-11 12:20 | disposition home or self-care (01) ==
LOC: JONCCHEMO 06:13 → J7W 10:21 → JONCCHEMO 12:20
PROVIDERS: ATTEND Internal Medicine Hematology & Oncology
DX: Z51.11 Encounter for antineoplastic chemotherapy (principal); C57.02 Malignant neoplasm of left fallopian tube; C54.1 Malignant neoplasm of endometrium
CPT/HCPCS: 36415; 80053; 80076; 81003; 81015; 82378; 83735; 84156; 85025; 86301; 86304; 96413; J9035

== ENCOUNTER 2018-09-18 05:48 | Day surgery (SDC) | payer OTHER ==
[2018-09-18] MEDS ORDERED: [UNRECOGNIZED DRUG - OTHER] IVPB ONE (10:00)
[2018-09-18] MEDS ORDERED: PALONOSETRON HCL 0.25 MG/5 ML VIAL IVPUSH ONE (10:00)
[2018-09-18] MEDS ORDERED: RANITIDINE IVPB ONE (10:00)
[2018-09-18] MEDS ORDERED: DEXAMETHASONE SODIUM PHOSPHATE IVPB ONE (10:00)
[2018-09-18] MEDS ORDERED: DOXORUBICIN HCL LIPOSOMAL IV ONE (10:30)
[2018-09-18] MEDS ORDERED: DEXTROSE 5% IV ONE (10:30)
[2018-09-18] MEDS ORDERED: WATER IV ONE (10:30)
[2018-09-18] MEDS ORDERED: SODIUM CHLORIDE 250 ML IV ONE (11:30)
[2018-09-18 14:11] VITALS: TEMP 97.5
[2018-09-18 14:34] VITALS: BP 147/82; PULSE 73
[2018-09-18] MEDS ORDERED: PORTA CATH FLUSH 10 ML IVPUSH ONE (14:34)
== END 2018-09-18 13:30 | disposition home or self-care (01) ==
LOC: JONCCHEMO 05:48 → J7W 10:00 → JONCCHEMO 13:30
PROVIDERS: ATTEND Internal Medicine Hematology & Oncology
PROC: 3E04305 Introduction of Other Antineoplastic into Central Vein, Percutaneous Approach (ICD-10-PCS; principal; 2018-09-18)
PROC: 3E043GC Introduction of Other Therapeutic Substance into Central Vein, Percutaneous Approach (ICD-10-PCS; 2018-09-18)
PROC: 3E0437Z Introduction of Electrolytic and Water Balance Substance into Central Vein, Percutaneous Approach (ICD-10-PCS; 2018-09-18)
DX: Z51.11 Encounter for antineoplastic chemotherapy (principal); C57.02 Malignant neoplasm of left fallopian tube; C54.1 Malignant neoplasm of endometrium
CPT/HCPCS: 96367; 96375; 96413; J2469; Q2049

== ENCOUNTER 2020-09-09 05:41 | Day surgery (SDC) | payer OTHER ==
[2020-09-06 15:18] VITALS: BMI 39.2
[2020-09-09 09:45] VITALS: TEMP 98.3
[2020-09-09 10:39] VITALS: BP 114/62; PULSE 76
== END 2020-09-09 10:40 | disposition home or self-care (01) ==
LOC: JASU-ENDO 05:41
PROVIDERS: ATTEND Internal Medicine Gastroenterology
PROC: 0DJD8ZZ Inspection of Lower Intestinal Tract, Via Natural or Artificial Opening Endoscopic (ICD-10-PCS; principal; 2020-09-09 08:00)
DX: K64.8 Other hemorrhoids (principal); K57.30 Diverticulosis of large intestine without perforation or abscess without bleeding; I10 Essential (primary) hypertension; E66.01 Morbid (severe) obesity due to excess calories; E11.9 Type 2 diabetes mellitus without complications; Z79.84 Long term (current) use of oral hypoglycemic drugs